=== PATIENT | male | born 1955 | race Caucasian/White ===

== ENCOUNTER 2016-11-12 11:05 | Emergency (ER) | payer OTHER ==
[2016-11-12 11:30] VITALS: TEMP 95
--- NOTE | 2016-11-12 11:48 | ED.PDOC ---
History of Present Illness - General Chief Complaint: Upper Extremity Injury Stated Complaint: shoulder pain Time Seen by Provider: 11/12/16 11:41 - History of Present Illness Initial Comments: This 61 y/o male fell on his right shoulder about a month ago. It has hurt since, and now even his Percocet does not help. The pain is severe. He has reduced ROM because of pain. It hurts in the shoulder joint, but also around the scapula and thoracic spine. Timing/Duration: getting worse, other - Over 1 month Severity: severe Improving Factors: nothing Worsening Factors: nothing Associated Symptoms: denies symptoms Allergies/Adverse Reactions: Allergies NO KNOWN ALLERGY Allergy (Verified 09/30/16 08:54) Home Medications: Ambulatory Orders Oxycodone W/ Acetaminophen [Oxycodone/Acetaminophen 10-325 mg] 1 tab PO TID PRN 02/19/16 Cyclobenzaprine HCl [Flexeril] 10 mg PO TID 06/24/16 Gabapentin 400 mg PO TID 11/12/16 Naproxen [Naprosyn] 500 mg PO BID #30 tab 11/12/16 Review of Systems - Review of Systems Constitutional: States: no symptoms reported EENTM: States: no symptoms reported Respiratory: States: no symptoms reported Cardiology: States: no symptoms reported Gastrointestinal/Abdominal: States: no symptoms reported Genitourinary: States: no symptoms reported Musculoskeletal: States: back pain, joint pain, joint swelling Skin: States: no symptoms reported Neurological: States: no symptoms reported Endocrine: States: no symptoms reported Hematologic/Lymphatic: States: no symptoms reported All other Systems: Reviewed and Negative Past Medical History (General) - Patient Medical History Hx Seizures: No Hx Stroke: No Hx Dementia: No Hx Asthma: No Hx of COPD: No Hx Cardiac Disorders: Yes - s/p stents placed, an artery still blocked Hx Congestive Heart Failure: No Hx Pacemaker: No Hx Hypertension: No Hx Thyroid Disease: No Hx Diabetes: No Hx Gastroesophageal Reflux: No Hx Renal Disease: No Hx Cancer: No Hx of HIV: No Hx Hepatitis C: No Hx MRSA: No - Vaccination History Hx Tetanus, Diphtheria Vaccination: Yes - current Hx Influenza Vaccination: No Hx Pneumococcal Vaccination: Yes - Social History Hx Tobacco Use: Yes Hx Chewing Tobacco Use: No Hx Alcohol Use: No Hx Substance Use: No Hx Substance Use Treatment: No Hx Depression: No Hx Physical Abuse: No Hx Emotional Abuse: No Hx Suspected Abuse: No - Female History Patient : No Family Medical History - Family History Mother Living Status: Still Living Hx Family;Other: CIDP Father Name: Kalpesh Age (years): 95 Living Status: Still Living Hx Family Asthma: No Hx Family Congestive Heart Failure: No Hx Family Hypertension: Yes Hx Family Stroke: No Hx Cardiac Disease: Yes - Six Stents Hx Family Diabetes: No Hx Family Cancer: No Hx Family;Other: Diverticulitis, HX of [place], colectomy. Physical Exam - Physical Exam General Appearance: Alert, Obvious distress - Mild Ears, Nose, Throat: hearing grossly normal, normal ENT inspection Neck: non-tender, full range of motion Respiratory: lungs clear, normal breath sounds, no respiratory distress, no accessory muscle use Cardiovascular/Chest: regular rate, rhythm, no edema, no gallop, no murmur Gastrointestinal/Abdominal: normal bowel sounds, non tender, soft Back Exam: vertebral tenderness - Lower thoracic, other - Pain inferior to scapula on right. + posterior rib pain. Extremity: other - Right shoulder joint pain, decreased ROM. Neurologic: alert, normal mood/affect, oriented x 3 Skin Exam: normal color, warm/dry Progress - Results/Orders Results/Orders: 11/12/16 11/12/16 11:26 12:48 Temperature 95 F L Pulse Rate [ 90 79 Left Brachial] Respiratory 20 16 Rate Blood Pressure 108/75 107/70 [Left Arm] O2 Sat by Pulse 96 94 L Oximetry R shoulder, scapula, ribs and T-spine: acute R posterior 6-10 rib fractures, Compression fracture lower thoracic vertebrae-age unknown. - EKG/XRAY/CT Xray Comments: See Results/Orders Departure - Departure Clinical Impression: Ribs, multiple fractures Qualifiers: Encounter type: initial encounter Fracture type: closed Laterality: right Qualifier Code: (S22.41XA) Multiple fractures of ribs, right side, initial encounter for closed fracture Vertebral compression fracture Qualifiers: Encounter type: initial encounter Qualifier Code: (M48.50XA) Collapsed vertebra , not elsewhere classified, site unspecified, initial encounter for fracture Fall from standing Qualifiers: Encounter type: initial encounter Qualifier Code: (W19.XXXA) Unspecified fall, initial encounter Time of Disposition: 13:55 Disposition: Discharge to Home or Self Care Condition: Good Departure Forms: ED Discharge - Pt. Copy, Patient Portal Self Enrollment Instructions: Rib Fracture, DI for Rib Fracture, Vertebral Compression Fracture , DI for Vertebral Fracture Diet: resume usual diet Referrals: Loren Meek NP [Primary Care Provider] - 1-5 Days Prescriptions: Naproxen [Naprosyn] 500 mg PO BID #30 tab Home Medications: Ambulatory Orders Oxycodone W/ Acetaminophen [Oxycodone/Acetaminophen 10-325 mg] 1 tab PO TID PRN 02/19/16 Cyclobenzaprine HCl [Flexeril] 10 mg PO TID 06/24/16 Gabapentin 400 mg PO TID 11/12/16 Naproxen [Naprosyn] 500 mg PO BID #30 tab 11/12/16 Additional Instructions: Follow up with PCP in 1-5 days. Need MRI of thoracic spine to determine age of compression fracture. Follow up in ED for any shortness of breath.
--- NOTE | 2016-11-12 13:22 | RAD ---
EXAM DESCRIPTION: Three views of right ribs. CLINICAL HISTORY: Fall, chest pain COMPARISON: None. TECHNIQUE: Three views of the ribs were acquired and submitted for evaluation. FINDINGS: Multiple right rib fractures. Negative for pneumothorax. IMPRESSION: Acute fractures of the 6th, 7th, 8th, 9th and possibly 10th right ribs. No definitive pneumothorax. Electronically signed by: Rodney Krishnan MD 11/12/2016 13:19
--- NOTE | 2016-11-12 13:22 | RAD ---
EXAM DESCRIPTION: XR SCAPULA CLINICAL HISTORY: 61 y/o ,M, Fall--shoulder, scapular, t-spine pain COMPARISON: None. IMPRESSION: Right rib fractures. The right glenohumeral joint and acromioclavicular joints are unremarkable. The imaged clavicle is unremarkable. Electronically signed by: Rodney Krishnan MD 11/12/2016 13:20
--- NOTE | 2016-11-12 13:23 | RAD ---
EXAM DESCRIPTION: XR SHOULDER 2 OR MORE VIEWS CLINICAL HISTORY: 61 y/o ,M, Fall--shoulder, scapular, t-spine pain COMPARISON: None. IMPRESSION: Two views of the right shoulder demonstrates no evidence of proximal humeral fracture or scapular fracture. The clavicle is also likely unremarkable. Multiple right posterior rib fractures. Electronically signed by: Rodney Krishnan MD 11/12/2016 13:21
--- NOTE | 2016-11-12 13:24 | RAD ---
EXAM DESCRIPTION: XR THORACIC SPINE 2 VIEWS CLINICAL HISTORY: 61 y/o ,M, Fall--shoulder, scapular, t-spine pain COMPARISON: None. IMPRESSION: Age indeterminate wedge fracture of a lower thoracic vertebral body period no additional vertebral body fractures are noted. If a time frame for this fracture is needed MRI suggested. Electronically signed by: Rodney Krishnan MD 11/12/2016 13:22
[2016-11-12] MEDS ORDERED: HYDROmorphone HCL INJ 2 MG/ML VIAL IM ONE (13:59)
[2016-11-12 14:23] VITALS: BP 118/74; O2SAT 97
== END 2016-11-12 14:35 | disposition home or self-care (01) ==
LOC: ER 11:05
DX: S22.41XA Multiple fractures of ribs, right side, initial encounter for closed fracture (principal); M48.50XA Collapsed vertebra, not elsewhere classified, site unspecified, initial encounter for fracture; Z98.61 Coronary angioplasty status; Z87.891 Personal history of nicotine dependence; Z79.899 Other long term (current) drug therapy; W19.XXXA Unspecified fall, initial encounter
CPT/HCPCS: 71101; 72070; 73010; 73030; J1170

== ENCOUNTER → 2016-11-16 | Outpatient (CLI) | payer OTHER ==
--- NOTE | 2016-11-16 10:25 | RAD ---
EXAM DESCRIPTION: XR SHOULDER 2 OR MORE VIEWS CLINICAL HISTORY: PAIN IN RIGHT SHOULDER COMPARISON: November 12, 2016 FINDINGS: Two views of the right shoulder were obtained. Again seen are multiple displaced right-sided rib fractures without apparent segmental rib fracture or pneumothorax. The right humeral head and neck are intact. Mild degenerative changes are noted in the right AC joint. The glenohumeral joint is anatomically aligned. Postoperative changes are noted in the right side of the neck and cervical spine. A vascular graft or stent is noted in the upper mediastinum left of midline. IMPRESSION: Multiple displaced right-sided rib fractures, unchanged from November 12, 2016. No segmental rib fracture, pneumothorax or other complication. No additional abnormality to explain right shoulder pain. Electronically signed by: Osvaldo Wall DO 11/16/2016 10:23
== END | disposition home or self-care (01) ==
LOC: RAD 08:43
PROVIDERS: ATTEND Nurse Practitioner Family
DX: M25.519 Pain in unspecified shoulder (principal)

== ENCOUNTER → 2016-11-27 | Outpatient (CLI) | payer OTHER ==
--- NOTE | 2016-11-29 10:06 | CT ---
CT right shoulder CLINICAL HISTORY: Right shoulder pain. Old rib fractures on the right side.. TECHNIQUE: Thin section axial CT with coronal and sagittal reformatted images. FINDINGS: There are multiple right-sided rib fractures. Remote healed fracture deformity anterior right third and fourth ribs. Partially healed anterior fifth rib fracture. There are two fractures of the sixth rib with displacement of the posterior fracture by about the width of the rib. Similarly displaced posterior right seventh rib fracture. Nondisplaced eighth rib fracture. Nondisplaced fractures of the lateral aspect of the fifth and sixth ribs. No pneumothorax. Pleural thickening along the posterior rib fractures, sixth seventh and eighth The posterior right sixth and seventh rib is in close proximity to the anterior border of the scapula and may account for impingement There is no fracture of the clavicle, scapula or proximal humerus There is no advanced glenohumeral osteoarthritis or focal osteochondral lesion This is not a detailed evaluation of the rotator cuff tendons but there is no diagnostic evidence of full-thickness rotator cuff tear. No subacromial or subdeltoid fluid. Mild muscle volume loss of the supraspinatus, infraspinatus and subscapularis. Grade 1 fatty infiltration of the subscapularis muscle Normal deltoid muscle Non-MSK: No mass or adenopathy in the visualized chest. IMPRESSION: Multiple right-sided rib fractures. Posterior right sixth and seventh ribs in close proximity to the undersurface of the scapula may account for some impingement symptoms No fracture or osteochondral lesion glenohumeral joint. No fracture or separation clavicle/AC joint Electronically signed by: Tristin Syed MD 11/29/2016 10:05 AM [employer]ATCH [employer]SEM[employer]PECTOR
== END | disposition home or self-care (01) ==
LOC: CT 08:58
PROVIDERS: ATTEND Orthopaedic Surgery
DX: R22.31 Localized swelling, mass and lump, right upper limb (principal)

== ENCOUNTER → 2016-12-22 | Outpatient (CLI) | payer OTHER | END | disposition home or self-care (01) | LOC: YCFC.O 13:44 | PROVIDERS: ATTEND Nurse Practitioner Family | DX: Z79.891 Long term (current) use of opiate analgesic (principal) ==

== ENCOUNTER 2016-12-26 13:44 | Emergency (ER) | payer OTHER ==
[2016-12-26 13:56] VITALS: BP 143/79; TEMP 97.1; O2SAT 94
--- NOTE | 2016-12-26 14:04 | ED.PDOC ---
History of Present Illness - General Chief Complaint: Head Injury Stated Complaint: fell and hit back of head Time Seen by Provider: 12/26/16 13:59 Source: patient Exam Limitations: no limitations - History of Present Illness Initial Comments: Maxi Miles 61 y/o male with history of chronic neck and back pain stated he lost his balance while opening the car door fell back wards landing on his head,had headache but no loc remembers incident but felt dazed afterwards.No neck pain able to get up on his own.Brought by his dad to er. Timing/Duration: 1/2 hour Severity: moderate Improving Factors: nothing Allergies/Adverse Reactions: Allergies NO KNOWN ALLERGY Allergy (Verified 09/30/16 08:54) Home Medications: Ambulatory Orders Oxycodone W/ Acetaminophen [Oxycodone/Acetaminophen 10-325 mg] 1 tab PO TID PRN 02/19/16 Gabapentin 400 mg PO TID 11/12/16 Esomeprazole Magnesium [Nexium] 40 mg PO DAILY 12/26/16 Ibuprofen [Motrin] 400 mg PO Q6HR #30 tab 12/26/16 Review of Systems - Review of Systems Constitutional: States: no symptoms reported EENTM: States: no symptoms reported Cardiology: States: no symptoms reported Gastrointestinal/Abdominal: States: no symptoms reported Genitourinary: States: no symptoms reported Musculoskeletal: States: no symptoms reported Skin: States: no symptoms reported Neurological: States: headache Endocrine: States: no symptoms reported Hematologic/Lymphatic: States: no symptoms reported Past Medical History (General) - Patient Medical History Hx Seizures: No Hx Stroke: No Hx Dementia: No Hx Asthma: No Hx of COPD: No Hx Cardiac Disorders: Yes - s/p stents placed, an artery still blocked Hx Congestive Heart Failure: No Hx Pacemaker: No Hx Hypertension: No Hx Thyroid Disease: No Hx Diabetes: No Hx Gastroesophageal Reflux: No Hx Renal Disease: No Hx Cancer: No Hx of HIV: No Hx Hepatitis C: No Hx MRSA: No Hx Other PMH: Yes - chronic neck/back pain Surgical History: other - back/neck surgery - Vaccination History Hx Tetanus, Diphtheria Vaccination: Yes Hx Influenza Vaccination: No Hx Pneumococcal Vaccination: Yes - Social History Hx Tobacco Use: Yes Hx Chewing Tobacco Use: No Hx Alcohol Use: No Hx Substance Use: No Hx Substance Use Treatment: No Hx Depression: No Hx Physical Abuse: No Hx Emotional Abuse: No Hx Suspected Abuse: No - Activities of Daily Living Grooming Ability: Independent Eating (Feeding) Ability: Independent Toileting Ability: Independent - Female History Patient : No Family Medical History - Family History Mother Family History: No Known Living Status: Still Living Hx Family;Other: CIDP Father Name: Kalpesh Age (years): 95 Living Status: Still Living Hx Family Asthma: No Hx Family Congestive Heart Failure: No Hx Family Hypertension: Yes Hx Family Stroke: No Hx Cardiac Disease: Yes - Six Stents Hx Family Diabetes: No Hx Family Cancer: No Hx Family;Other: Diverticulitis, HX of [place], colectomy. Physical Exam - Physical Exam General Appearance: Alert, No apparent distress, Other - speech fluent Eye Exam: bilateral normal - with glasses Ears, Nose, Throat: hearing grossly normal, normal ENT inspection, normal pharynx Neck: non-tender, full range of motion, supple Respiratory: chest non-tender, lungs clear, normal breath sounds Cardiovascular/Chest: normal peripheral pulses, regular rate, rhythm, no edema, no gallop, no JVD, no murmur Gastrointestinal/Abdominal: normal bowel sounds, non tender, soft, no organomegaly, no pulsatile mass Back Exam: normal inspection, no CVA tenderness, no vertebral tenderness Extremity: normal range of motion, non-tender Neurologic: no motor/sensory deficits, alert, normal mood/affect, oriented x 3 Skin Exam: normal color, warm/dry, other - scalp swelling occiput Progress - EKG/XRAY/CT CT: head-no acute abnormality Departure - Departure Clinical Impression: Fall against object Qualifiers: Encounter type: initial encounter Qualifier Code: (W18.09XA) Striking against other object with subsequent fall, initial encounter Scalp contusion Qualifiers: Encounter type: initial encounter Qualifier Code: (S00.03XA) Contusion of scalp , initial encounter Time of Disposition: 15:05 Disposition: Discharge to Home or Self Care Condition: Good Departure Forms: ED Discharge - Pt. Copy, Patient Portal Self Enrollment Instructions: DI for Contusion Prescriptions: Ibuprofen [Motrin] 400 mg PO Q6HR #30 tab Home Medications: Ambulatory Orders Oxycodone W/ Acetaminophen [Oxycodone/Acetaminophen 10-325 mg] 1 tab PO TID PRN 02/19/16 Gabapentin 400 mg PO TID 11/12/16 Esomeprazole Magnesium [Nexium] 40 mg PO DAILY 12/26/16 Ibuprofen [Motrin] 400 mg PO Q6HR #30 tab 12/26/16 Additional Instructions: RETURN TO EMERGENCY ROOM NEEDED
--- NOTE | 2016-12-26 15:01 | CT ---
EXAM DESCRIPTION: Head CLINICAL HISTORY: head contusion/fall COMPARISON: None Available. TECHNIQUE: Contiguous axial images of the brain were obtained without the administration of intravenous contrast. FINDINGS: There is no acute intracranial hemorrhage or mass effect. Ventricular system is within normal limits. There is adequate posey-white matter differentiation. There is no skull fracture. There is a hematoma within the posterior scalp. The visualized paranasal sinuses and mastoid air cells are within normal limits. IMPRESSION: No acute intracranial abnormalities. Electronically signed by: Dhiraj Upton MD 12/26/2016 3:00 PM CDT
== END 2016-12-26 15:19 | disposition home or self-care (01) ==
LOC: ER 13:44
DX: S00.03XA Contusion of scalp, initial encounter (principal); G89.29 Other chronic pain; M54.2 Cervicalgia; M54.9 Dorsalgia, unspecified; Z87.891 Personal history of nicotine dependence; Z98.61 Coronary angioplasty status; Z79.899 Other long term (current) drug therapy; W19.XXXA Unspecified fall, initial encounter

== ENCOUNTER 2016-12-29 09:54 | Emergency (ER) | payer OTHER ==
[2016-12-29] MEDS ORDERED: KETOROLAC TROMETHAMINE INJ 30 MG/ML VIAL IM ONE (10:44)
[2016-12-29 10:58] VITALS: TEMP 96.9
--- NOTE | 2016-12-29 11:20 | RAD ---
EXAM DESCRIPTION: Ribs,Left 3 Views CLINICAL HISTORY: 61 years Male, fall 3 days ago with pain COMPARISON: None. TECHNIQUE: Three views of the left ribs FINDINGS: There are subacute/healing fractures of the left sixth and eighth ribs posterolaterally. No bone lesion is observed. IMPRESSION: Subacute/healing left side posterolateral rib fractures of the sixth and eighth ribs Electronically signed by: Erik Caldera MD 12/29/2016 11:19 AM CDT
--- NOTE | 2016-12-29 11:36 | ED.PDOC ---
History of Present Illness - General Chief Complaint: General Stated Complaint: rib pain Time Seen by Provider: 12/29/16 10:09 Source: patient, family Exam Limitations: clinical condition - History of Present Illness Initial Comments: the patient is a 61-year-old male presenting to the emergency room secondary to left-sided anterior and posterior chest pain since a fall that occurred on Wednesday. He was seen at the time of the fall here and was evaluated for head injury but he did not complain of any chest pain at that time and was sent home. He has since had chest pain as stated above and he does have some bruising to his back. It hurts when he twists and turns and takes a deep breath. No reinjury since that time. Severity: moderate Improving Factors: immobilization Worsening Factors: movement Associated Symptoms: chest pain Allergies/Adverse Reactions: Allergies NO KNOWN ALLERGY Allergy (Verified 09/30/16 08:54) Home Medications: Ambulatory Orders Oxycodone W/ Acetaminophen [Oxycodone/Acetaminophen 10-325 mg] 1 tab PO TID PRN 02/19/16 Gabapentin 400 mg PO TID 11/12/16 Esomeprazole Magnesium [Nexium] 40 mg PO DAILY 12/26/16 Ibuprofen [Motrin] 400 mg PO Q6HR #30 tab 12/26/16 Cephalexin Monohydrate [Keflex] 500 mg PO Q12H #10 cap 12/29/16 Review of Systems - Review of Systems Review of Systems: 12/29/16 11:35 compared to baseline: Constitutional: States: no symptoms reported EENTM: States: no symptoms reported Respiratory: States: no symptoms reported Cardiology: States: chest pain Gastrointestinal/Abdominal: States: no symptoms reported Genitourinary: States: no symptoms reported Musculoskeletal: States: see HPI Skin: States: no symptoms reported Neurological: States: no symptoms reported - chronic changes only Endocrine: States: no symptoms reported Hematologic/Lymphatic: States: no symptoms reported All other Systems: No Change from Baseline Past Medical History (General) - Patient Medical History Hx Seizures: No Hx Stroke: No Hx Dementia: No Hx Asthma: No Hx of COPD: No Hx Cardiac Disorders: Yes - s/p stents placed, an artery still blocked Hx Congestive Heart Failure: No Hx Pacemaker: No Hx Hypertension: No Hx Thyroid Disease: No Hx Diabetes: No Hx Gastroesophageal Reflux: No Hx Renal Disease: No Hx Cancer: No Hx of HIV: No Hx Hepatitis C: No Hx MRSA: No - Vaccination History Hx Tetanus, Diphtheria Vaccination: Yes Hx Influenza Vaccination: No Hx Pneumococcal Vaccination: Yes - Social History Hx Tobacco Use: Yes Hx Chewing Tobacco Use: No Hx Alcohol Use: No Hx Substance Use: No Hx Substance Use Treatment: No Hx Depression: No Hx Physical Abuse: No Hx Emotional Abuse: No Hx Suspected Abuse: No - Female History Patient : No Family Medical History - Family History Mother Family History: No Known Living Status: Still Living Hx Family;Other: CIDP Father Name: Kalpesh Age (years): 95 Living Status: Still Living Hx Family Asthma: No Hx Family Congestive Heart Failure: No Hx Family Hypertension: Yes Hx Family Stroke: No Hx Cardiac Disease: Yes - Six Stents Hx Family Diabetes: No Hx Family Cancer: No Hx Family;Other: Diverticulitis, HX of [place], colectomy. Physical Exam - Physical Exam General Appearance: Alert, Anxious, No apparent distress Eye Exam: bilateral normal Ears, Nose, Throat: hearing grossly normal, normal pharynx, other - e does have some facial asymmetry from his previous stroke as well as some slurring of speech from his previous stroke Neck: non-tender, full range of motion Respiratory: lungs clear, normal breath sounds, no respiratory distress, no accessory muscle use, other - the patient does have discomfort palpation over the lower half of his left side of his chest. He also has bruising noted as stated above. Cardiovascular/Chest: normal peripheral pulses, regular rate, rhythm, no edema Peripheral Pulses: radial,right: 2+, radial,left: 2+, dorsalis pedis,right: 2+, dorsalis pedis,left: 2+ Gastrointestinal/Abdominal: non tender Rectal Exam: deferred Back Exam: no CVA tenderness, no vertebral tenderness, other - bruising as stated above on the left Extremity: normal range of motion, non-tender, normal inspection, no pedal edema , no calf tenderness, normal capillary refill Neurologic: alert, normal mood/affect, oriented x 3 - he does have poor memory which is a long-term problem related to his Skin Exam: normal color - with the exception of the bruising Comments: Vital Signs - 24 hr 12/29/16 12/29/16 12/29/16 10:06 10:16 10:58 Temperature 96.4 F L 96.9 F L Pulse Rate [ 83 72 Left Brachial] Respiratory 20 20 16 Rate Blood Pressure 125/71 113/57 [Left Arm] O2 Sat by Pulse 97 99 Oximetry Progress - Progress Progress: 12/29/16 11:37 the patient is a 61-year-old male who fell approximately 3 days ago and has been having some left-sided chest pain since that time. Rib series here shows nondisplaced fractures of the sixth and eighth ribs on the left. No evidence of pneumothorax. The patient needs to take big deep breaths and twist and turn to help reduce fluid accumulation in the lungs and reduce his risk for pneumonia formation. He can continue his chronic pain medications for pain control. ER warnings were given for any acute worsening. he should follow-up with his primary care doctor before the weekend for reevaluation. I will go ahead and place the patient on prophylactic Keflex for 5 days only at twice a day dosing. 12/29/16 11:39 Departure - Departure Clinical Impression: Ribs, multiple fractures Qualifiers: Encounter type: initial encounter Fracture type: closed Laterality: left Qualifier Code: (S22.42XA) Multiple fractures of ribs, left side, initial encounter for closed fracture Disposition: Discharge to Home or Self Care Condition: Fair Departure Forms: ED Discharge - Pt. Copy, Patient Portal Self Enrollment Instructions: DI for Rib Fracture Diet: regular diet Activity: increase activity as tolerated Referrals: Loren Meek NP [Primary Care Provider] - 1-5 Days Prescriptions: Cephalexin Monohydrate [Keflex] 500 mg PO Q12H #10 cap Home Medications: Ambulatory Orders Oxycodone W/ Acetaminophen [Oxycodone/Acetaminophen 10-325 mg] 1 tab PO TID PRN 02/19/16 Gabapentin 400 mg PO TID 11/12/16 Esomeprazole Magnesium [Nexium] 40 mg PO DAILY 12/26/16 Ibuprofen [Motrin] 400 mg PO Q6HR #30 tab 12/26/16 Cephalexin Monohydrate [Keflex] 500 mg PO Q12H #10 cap 12/29/16 Additional Instructions: the patient is a 61-year-old male who fell approximately 3 days ago and has been having some left-sided chest pain since that time. Rib series here shows nondisplaced fractures of the sixth and eighth ribs on the left. No evidence of pneumothorax. The patient needs to take big deep breaths and twist and turn to help reduce fluid accumulation in the lungs and reduce his risk for pneumonia formation. He can continue his chronic pain medications for pain control. ER warnings were given for any acute worsening. he should follow-up with his primary care doctor before the weekend for reevaluation. He will be placed on prophylactic Keflex for 5 days
[2016-12-29 11:54] VITALS: BP 99/59; O2SAT 97
== END 2016-12-29 11:54 | disposition home or self-care (01) ==
LOC: ER 09:54
DX: S22.42XA Multiple fractures of ribs, left side, initial encounter for closed fracture (principal); I25.10 Atherosclerotic heart disease of native coronary artery without angina pectoris; Z98.61 Coronary angioplasty status; Z87.891 Personal history of nicotine dependence; W19.XXXA Unspecified fall, initial encounter
CPT/HCPCS: 71101; J1885

== ENCOUNTER → 2017-01-19 | Outpatient (CLI) | payer OTHER | END | disposition home or self-care (01) | LOC: YCFC.O 15:22 | PROVIDERS: ATTEND Nurse Practitioner Family | DX: Z79.891 Long term (current) use of opiate analgesic (principal) ==

== ENCOUNTER → 2017-02-16 | Outpatient (CLI) | payer OTHER | END | disposition home or self-care (01) | LOC: YCFC.O 15:30 | PROVIDERS: ATTEND Anesthesiology Pain Medicine | DX: Z79.891 Long term (current) use of opiate analgesic (principal) ==

== ENCOUNTER → 2017-03-16 | Outpatient (CLI) | payer OTHER | LOC: YCFC.O 14:22 | PROVIDERS: ATTEND Anesthesiology Pain Medicine | DX: Z79.891 Long term (current) use of opiate analgesic (principal) ==

== ENCOUNTER 2017-03-19 06:53 | Emergency (ER) | payer OTHER ==
--- NOTE | 2017-03-19 07:17 | ED.PDOC ---
History of Present Illness - General Chief Complaint: Laceration Stated Complaint: Lacerated R forehead at eyebrow Time Seen by Provider: 03/19/17 07:14 Source: patient, RN notes reviewed, Vital Signs reviewed Exam Limitations: no limitations - History of Present Illness Initial Comments: Maxi Miles 61 y/o male stated while visiting his friend at [employer] slipped and on the floor with laceration to his right eyebrow.No loss of conciousness,no nausea/vomiting ,no blurry vision no neck pains Timing/Duration: just prior to arrival Severity: mild Location: face Improving Factors: nothing Worsening Factors: nothing Associated Symptoms: denies symptoms Allergies/Adverse Reactions: Allergies NO KNOWN ALLERGY Allergy (Verified 09/30/16 08:54) Home Medications: Ambulatory Orders Oxycodone W/ Acetaminophen [Oxycodone/Acetaminophen 10-325 mg] 1 tab PO TID PRN 02/19/16 Gabapentin 400 mg PO TID 11/12/16 Esomeprazole Magnesium [Nexium] 40 mg PO DAILY 12/26/16 Ibuprofen [Motrin] 400 mg PO Q6HR #30 tab 12/26/16 Cephalexin Monohydrate [Keflex] 500 mg PO Q12H #10 cap 12/29/16 Review of Systems - Review of Systems Constitutional: States: no symptoms reported EENTM: States: no symptoms reported Respiratory: States: no symptoms reported Cardiology: States: no symptoms reported Gastrointestinal/Abdominal: States: no symptoms reported Genitourinary: States: no symptoms reported Musculoskeletal: States: no symptoms reported Skin: States: see HPI Neurological: States: no symptoms reported Endocrine: States: no symptoms reported Hematologic/Lymphatic: States: no symptoms reported Past Medical History (General) - Patient Medical History Hx Seizures: No Hx Stroke: No Hx Dementia: No Hx Asthma: No Hx of COPD: No Hx Cardiac Disorders: Yes - s/p stents placed, an artery still blocked Hx Congestive Heart Failure: No Hx Pacemaker: No Hx Hypertension: No Hx Thyroid Disease: No Hx Diabetes: No Hx Gastroesophageal Reflux: No Hx Renal Disease: No Hx Cancer: No Hx of HIV: No Hx Hepatitis C: No Hx MRSA: No Surgical History: other - spine-lumbar/cervical - Vaccination History Hx Tetanus, Diphtheria Vaccination: Yes Hx Influenza Vaccination: No Hx Pneumococcal Vaccination: Yes - Social History Hx Tobacco Use: Yes Hx Chewing Tobacco Use: No Hx Alcohol Use: No Hx Substance Use: No Hx Substance Use Treatment: No Hx Depression: No Hx Physical Abuse: No Hx Emotional Abuse: No Hx Suspected Abuse: No - Female History Patient : No Family Medical History - Family History Mother Family History: No Known Living Status: Still Living Hx Family;Other: CIDP Father Name: Kalpesh Age (years): 95 Living Status: Still Living Hx Family Asthma: No Hx Family Congestive Heart Failure: No Hx Family Hypertension: Yes Hx Family Stroke: No Hx Cardiac Disease: Yes - Six Stents Hx Family Diabetes: No Hx Family Cancer: No Hx Family;Other: Diverticulitis, HX of [place], colectomy. Physical Exam - Physical Exam General Appearance: Alert, No apparent distress, Other - speech fluent Eyes, Ears, Nose, Throat Exam: PERRL/EOMI, normal ENT inspection, TMs normal, pharynx normal Neck: non-tender, full range of motion, supple, normal inspection Cardiovascular/Chest: normal peripheral pulses, regular rate, rhythm, no murmur Respiratory: chest non-tender, lungs clear, normal breath sounds, no respiratory distress Gastrointestinal/Abdominal: normal bowel sounds, non tender, soft Back Exam: normal inspection Extremity: normal range of motion, non-tender, normal inspection, no calf tenderness Neurologic: no motor/sensory deficits, alert, oriented x 3 Skin Exam: warm/dry Skin Problem Location: face Skin Character: other - laceration 1.2 cm right eyebrow Procedures - Laceration/Wound Repair Face Wound Length (cm): 1.2 Wound's Depth, Shape: superficial Wound Explored: clean Irrigated w/ Saline (cc's): 10 Betadine Prep?: No - hibiclens Wound Repaired With: dermabond Sterile Dressing Applied?: Yes - reinforced with steri strip Departure - Departure Clinical Impression: Fall Qualifiers: Encounter type: initial encounter Qualified Code(s): W19.XXXA - Unspecified fall, initial encounter Laceration of eyebrow, right Qualifiers: Encounter type: initial encounter Qualified Code(s): S01.111A - Laceration without foreign body of right eyelid and periocular area, initial encounter Time of Disposition: 07:27 Disposition: Discharge to Home or Self Care Departure Forms: ED Discharge - Pt. Copy, Patient Portal Self Enrollment Instructions: DI for Laceration Repair With Dermabond Referrals: Loren Meek NP [Primary Care Provider] - 1-2 Weeks Home Medications: Ambulatory Orders Oxycodone W/ Acetaminophen [Oxycodone/Acetaminophen 10-325 mg] 1 tab PO TID PRN 02/19/16 Gabapentin 400 mg PO TID 11/12/16 Esomeprazole Magnesium [Nexium] 40 mg PO DAILY 12/26/16 Ibuprofen [Motrin] 400 mg PO Q6HR #30 tab 12/26/16 Cephalexin Monohydrate [Keflex] 500 mg PO Q12H #10 cap 12/29/16 Additional Instructions: Return to emergency room as needed
[2017-03-19 07:57] VITALS: TEMP 97.6
[2017-03-19 08:02] VITALS: BP 120/66; O2SAT 94
== END 2017-03-19 08:02 | disposition home or self-care (01) ==
LOC: ER 06:53
DX: S01.111A Laceration without foreign body of right eyelid and periocular area, initial encounter (principal); Z79.899 Other long term (current) drug therapy; Z87.891 Personal history of nicotine dependence; Z98.61 Coronary angioplasty status; W01.0XXA Fall on same level from slipping, tripping and stumbling without subsequent striking against object, initial encounter; Y92.89 Other specified places as the place of occurrence of the external cause

== ENCOUNTER → 2017-04-27 | Outpatient (CLI) | payer OTHER | END | disposition home or self-care (01) | LOC: YCFC.O 15:42 | PROVIDERS: ATTEND Anesthesiology Pain Medicine | DX: Z79.891 Long term (current) use of opiate analgesic (principal) ==

== ENCOUNTER 2017-05-14 17:38 | Emergency (ER) | payer OTHER ==
--- NOTE | 2017-05-14 18:52 | RAD ---
EXAM DESCRIPTION: Cervical Spine,5 Views CLINICAL HISTORY: 61 years Male pain COMPARISON: CT cervical spine study from 09/30/2016. TECHNIQUE: Five views of the cervical spine. FINDINGS: The C7 and T1 levels are suboptimally visualized on the lateral view. Changes from anterior cervical spinal fusion at C4-5. The surgical hardware appears intact. Vertebral body alignment is unremarkable. No acute fractures are identified. There are mild degenerative changes in the spine. No significant bony foraminal encroachment is identified. The patient is edentulous. There are postsurgical changes in the right neck. There are atherosclerotic calcifications at the left carotid bifurcation. Vascular stent overlies the left upper chest. IMPRESSION: No acute osseous abnormality is identified. CT or MRI could be obtained to better evaluate if indicated. Atherosclerotic calcifications at the left carotid bifurcation. There appear to be changes from previous right carotid endarterectomy. Electronically signed by: Ramón Bryan MD 05/14/2017 6:51 PM CDT
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
[2017-05-14] MEDS ORDERED: KETOROLAC TROMETHAMINE INJ 60 MG/2 ML VIAL IM ONE (19:32)
[2017-05-14] MEDS ORDERED: ORPHENADRINE CITRATE 30 MG/ML AMP IM ONE (19:33)
[2017-05-14] MEDS ORDERED: HYDROcodone 7.5MG/APAP 325MG 1 EA TAB PO ONE (19:34)
[2017-05-14 19:52] VITALS: BP 115/87; TEMP 98.5; O2SAT 95
== END 2017-05-14 19:57 | disposition home or self-care (01) ==
LOC: ER 17:38
DX: S16.1XXA Strain of muscle, fascia and tendon at neck level, initial encounter (principal); G89.29 Other chronic pain; M54.9 Dorsalgia, unspecified; V43.63XA Car passenger injured in collision with pick-up truck in traffic accident, initial encounter; Y92.488 Other paved roadways as the place of occurrence of the external cause
CPT/HCPCS: 72050; J1885; J2360

== ENCOUNTER → 2017-05-25 | Outpatient (CLI) | payer OTHER | END | disposition home or self-care (01) | LOC: YCFC.O 14:19 | PROVIDERS: ATTEND Anesthesiology Pain Medicine | DX: Z79.891 Long term (current) use of opiate analgesic (principal) ==

== ENCOUNTER → 2017-06-22 | Outpatient (CLI) | payer OTHER | END | disposition home or self-care (01) | LOC: YCFC.O 14:40 | PROVIDERS: ATTEND Anesthesiology Pain Medicine | DX: Z79.891 Long term (current) use of opiate analgesic (principal) ==

== ENCOUNTER → 2017-06-29 | Outpatient (CLI) | payer OTHER ==
--- NOTE | 2017-06-30 09:32 | CT ---
EXAM DESCRIPTION: Thoracic Spine CLINICAL HISTORY: 61 years, Male, POSTLAMINECTOMY SYNDROME, NOT ELSEWHERE CLASSIFIED COMPARISON: Thoracic spine series TECHNIQUE: CT of the thoracic spine was performed without IV contrast. This exam was performed according to our departmental dose-optimization program, which includes automated exposure control, adjustment of the mA and/or kV according to patient size and/or use of iterative reconstruction technique. FINDINGS: There is an old T12 compression fracture, stable from November,. No acute vertebral body fracture or subluxation. The facet joints are anatomically aligned and the posterior elements are intact. No laminectomy defect is identified. Postoperative changes in the cervical spine are only partially included on this exam. There are several old right-sided rib fractures, some non or partially united. Old healed left-sided rib fractures are also noted. There are tiny anterior ossified subcutaneous levels in the thoracic spine without significant disc space narrowing. A stent is present in the proximal left subclavian artery. Aberrant course of the right subclavian artery is only partially visualized. This results in mass effect on the posterior esophageal wall. Emphysematous changes are noted without airspace consolidation or pleural effusion. There is a tiny calcified granuloma in the left lower lobe. Visualized portions of the upper abdomen are unremarkable for noncontrast technique. IMPRESSION: Old T12 compression fracture, stable from November,. Mild degenerative changes elsewhere in the thoracic spine, but no additional abnormality to explain patient's symptoms. Electronically signed by: Osvaldo Wall MD 06/30/2017 9:30 AM CDT Workstation: [id number]
== END | disposition home or self-care (01) ==
LOC: CT 10:18
PROVIDERS: ATTEND Anesthesiology Pain Medicine
DX: M96.1 Postlaminectomy syndrome, not elsewhere classified (principal)

== ENCOUNTER → 2017-07-02 | Outpatient (CLI) | payer OTHER ==
--- NOTE | 2017-07-05 10:07 | CT ---
EXAM DESCRIPTION: Cervical Spine CLINICAL HISTORY: OTHER CERVICAL DISC DEGENERATION, UNSP CERVICAL RE COMPARISON: None Available. TECHNIQUE: Cervical CT is performed with thin-section axial imaging. MPRs are created and reviewed as well. This exam was performed according to our departmental dose-optimization program, which includes automated exposure control, adjustment of the mA and/or kV according to patient size and/or use of iterative reconstruction technique. FINDINGS: CT of the cervical spine demonstrates normal alignment with prior anterior cervical disc fusion and graft with anterior plating at the C4-5 level that appears mature with anatomic alignment. Degenerative changes anteriorly at the C1-2 articulation are noted bony spinal canal is adequate throughout its course. Soft tissue structures are unremarkable except for some swallowing artifact in the hypopharynx. No cervical ribs are noted. Vertebral body alignment and disc contour is essentially normal at each level with obliteration of the disc space at the C4-5 level multilevel mild annular prominence is present. Prominent disc osteophyte complexes or asymmetric disc herniation is not identified. Assess for stent involving the left subclavian artery is incidentally noted. IMPRESSION: Prior anterior vertebral body plating and anterior cervical disc fusion and graft material at the C4-5 with a satisfactory alignment and a mature fusion evident. Mild degenerative changes involving the C1-2 articulation and to a lesser degree the disc spaces and facet joints with otherwise essentially normal CT of the cervical spine. Electronically signed by: Tristin Marino MD 07/05/2017 10:06 AM CDT
== END ==
LOC: CT 10:42
PROVIDERS: ATTEND Anesthesiology Pain Medicine
DX: M50.30 Other cervical disc degeneration, unspecified cervical region (principal); Z98.1 Arthrodesis status

== ENCOUNTER → 2017-07-20 | Outpatient (CLI) | payer OTHER | END | disposition home or self-care (01) | LOC: YCFC.O 15:15 | PROVIDERS: ATTEND Anesthesiology Pain Medicine | DX: Z79.891 Long term (current) use of opiate analgesic (principal) ==

== ENCOUNTER → 2017-08-17 | Outpatient (CLI) | payer OTHER | END | disposition home or self-care (01) | LOC: YCFC.O 16:11 | PROVIDERS: ATTEND Anesthesiology Pain Medicine | DX: Z79.891 Long term (current) use of opiate analgesic (principal) ==

== ENCOUNTER 2017-08-20 04:43 | Emergency (ER) | payer OTHER ==
--- NOTE | 2017-08-20 04:50 | ED.PDOC ---
History of Present Illness - General Chief Complaint: General Stated Complaint: diarrhea Time Seen by Provider: 08/20/17 04:43 Source: patient Exam Limitations: no limitations - History of Present Illness Initial Comments: Maxi Miles 61 y/o male stated that he had watery diarrhea for the last 2 days no nausea/vomiting ,no fever no ill contact no recent antibiotic use,or travel outside [place]Also with abdominal cramps. Timing/Duration: other - 2 days Improving Factors: nothing Worsening Factors: eating Associated Symptoms: other - see hpi Allergies/Adverse Reactions: Allergies NO KNOWN ALLERGY Allergy (Verified 08/20/17 04:53) Home Medications: Ambulatory Orders Oxycodone W/ Acetaminophen [Oxycodone/Acetaminophen 10-325 mg] 1 tab PO TID PRN 02/19/16 Gabapentin 400 mg PO TID 11/12/16 Esomeprazole Magnesium [Nexium] 40 mg PO DAILY 12/26/16 Ibuprofen [Motrin] 400 mg PO Q6HR #30 tab 12/26/16 Cephalexin Monohydrate [Keflex] 500 mg PO Q12H #10 cap 12/29/16 Methocarbamol [Robaxin] 750 mg PO TID #20 tab 05/14/17 Promethazine Tab [Phenergan Tablet] 25 mg PO .Q4H PRN #30 tab 08/20/17 Review of Systems - Review of Systems Constitutional: States: no symptoms reported Respiratory: States: no symptoms reported Cardiology: States: no symptoms reported Gastrointestinal/Abdominal: States: see HPI Genitourinary: States: no symptoms reported Past Medical History (General) - Patient Medical History Hx Seizures: No Hx Stroke: No Hx Dementia: No Hx Asthma: No Hx of COPD: No Hx Cardiac Disorders: Yes - s/p stents placed, an artery still blocked Hx Congestive Heart Failure: No Hx Pacemaker: No Hx Hypertension: No Hx Thyroid Disease: No Hx Diabetes: No Hx Gastroesophageal Reflux: No Hx Renal Disease: No Hx Cancer: No Hx of HIV: No Hx Hepatitis C: No Hx MRSA: No Hx Other PMH: Yes - chronic low back pain on pain management Surgical History: other - cardiac stents - Vaccination History Hx Tetanus, Diphtheria Vaccination: Yes Hx Influenza Vaccination: No Hx Pneumococcal Vaccination: No - Social History Hx Tobacco Use: Yes Hx Chewing Tobacco Use: No Hx Alcohol Use: No Hx Substance Use: No Hx Substance Use Treatment: No Hx Depression: No Hx Physical Abuse: No Hx Emotional Abuse: No Hx Suspected Abuse: No - Female History Patient : No Family Medical History - Family History Mother Family History: No Known Living Status: Still Living Hx Family;Other: CIDP Father Name: Kalpesh Age (years): 95 Living Status: Still Living Hx Family Asthma: No Hx Family Congestive Heart Failure: No Hx Family Hypertension: Yes Hx Family Stroke: No Hx Cardiac Disease: Yes - Six Stents Hx Family Diabetes: No Hx Family Cancer: No Hx Family;Other: Diverticulitis, HX of [place], colectomy. Physical Exam - Physical Exam General Appearance: Alert, Anxious, Frail Eye Exam: bilateral normal, bilateral other - non icteric sclerae Ears, Nose, Throat: hearing grossly normal, normal ENT inspection, normal pharynx Neck: non-tender, supple Respiratory: lungs clear, no respiratory distress Cardiovascular/Chest: normal peripheral pulses, regular rate, rhythm, no murmur Peripheral Pulses: radial,right: 2+, radial,left: 2+ Gastrointestinal/Abdominal: normal bowel sounds, non tender, soft, no organomegaly Back Exam: no CVA tenderness, no vertebral tenderness Extremity: no pedal edema, no calf tenderness Neurologic: alert, normal mood/affect, oriented x 3 Skin Exam: normal color, warm/dry Lymphatic: no adenopathy Progress - Progress Progress: 08/20/17 06:24 Last Vital Signs Temp 95.8 F L 08/20/17 06:17 Pulse 73 08/20/17 06:17 Resp 18 08/20/17 06:17 BP 131/79 08/20/17 06:17 Pulse Ox 90 L 08/20/17 06:17 - Results/Orders Results/Orders: Laboratory Tests 08/20/17 08/20/17 04:50 04:50 WBC 11.8 H RBC 4.21 L Hgb 13.6 L Hct 40.6 L MCV 96.4 H MCH 32.3 H MCHC 33.4 RDW 13.5 Plt Count 195 MPV 9.7 Absolute Neuts (auto) 7.00 H Absolute Lymphs (auto) 3.00 Absolute Monos (auto) 1.40 H Absolute Eos (auto) 0.30 Absolute Basos (auto) 0.10 Neutrophils % 59.2 Lymphocytes % 25.4 Monocytes % 12.1 H Eosinophils % 2.5 Basophils % 0.8 Sodium 138 Potassium 4.3 Chloride 106 Carbon Dioxide 29 Anion Gap 7.3 L BUN 16 Creatinine 0.97 BUN/Creatinine Ratio 16.5 Random Glucose 83 Serum Osmolality 276.0 Calcium 8.8 Total Bilirubin 0.3 AST 22 ALT 13 Alkaline Phosphatase 115 Serum Total Protein 6.6 Albumin 3.4 Globulin 3.2 Albumin/Globulin Ratio 1.1 - EKG/XRAY/CT CT Ordered: Yes - abd/p-no acute process Departure - Departure Clinical Impression: Abdominal cramps Diarrhea Qualifiers: Diarrhea type: unspecified type Qualified Code(s): R19.7 - Diarrhea, unspecified Time of Disposition: 06:51 Disposition: Discharge to Home or Self Care Condition: Good Departure Forms: ED Discharge - Pt. 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 [Primary Care Provider] - 1-2 Weeks Prescriptions: Promethazine Tab [Phenergan Tablet] 25 mg PO .Q4H PRN #30 tab PRN Reason: Abdominal Cramping Home Medications: Ambulatory Orders Oxycodone W/ Acetaminophen [Oxycodone/Acetaminophen 10-325 mg] 1 tab PO TID PRN 02/19/16 Gabapentin 400 mg PO TID 11/12/16 Esomeprazole Magnesium [Nexium] 40 mg PO DAILY 12/26/16 Ibuprofen [Motrin] 400 mg PO Q6HR #30 tab 12/26/16 Cephalexin Monohydrate [Keflex] 500 mg PO Q12H #10 cap 12/29/16 Methocarbamol [Robaxin] 750 mg PO TID #20 tab 05/14/17 Promethazine Tab [Phenergan Tablet] 25 mg PO .Q4H PRN #30 tab 08/20/17 Additional Instructions: Follow up with primary md 08/23/2017 as needed call for your appointment
[2017-08-20] MEDS ORDERED: LACTATED RINGERS 1,000 ML IVS ONE (04:53)
[2017-08-20] MEDS ORDERED: PROMETHAZINE HCL INJ 25 MG/ML VIAL IM ONE (04:53)
[2017-08-20 06:43] VITALS: BP 121/77; TEMP 95.3; O2SAT 92
--- NOTE | 2017-08-20 06:43 | CT ---
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 Images in the axial and coronal planes were presented for interpretation This exam was performed according to our departmental dose-optimization program, which includes automated exposure control, adjustment of the mA and/or kV according to patient size and/or use of iterative reconstruction technique. FINDINGS: The visualized portions of the lung bases are clear. The cardiomediastinal structures are within normal limits. Within the upper abdomen, the liver and spleen are normal in size and morphology. The gallbladder is normal in morphology. The intra/extrahepatic biliary tree is normal in appearance. The pancreas and adrenal glands are normal. The kidneys are normal in size bilaterally. The ureters are normal in course and caliber. There is a 8mm cyst along the upper pole the left kidney on axial image 28. The stomach and small intestines are within normal limits without evidence of bowel dilation or wall thickening. The appendix is well visualized and normal. The colon is stool filled and unremarkable. There are moderate sigmoid colonic diverticula without associated wall thickening or inflammatory changes. Within the pelvis, the bladder and rectum are normal. The prostate is age-appropriate There are no pathologically enlarged inguinal, retroperitoneal, portacaval, or mesenteric lymph nodes. The soft tissue structures of the abdominal wall are normal. The visualized osseous structures are within normal limits for the patient's age. There is left hip arthroplasty hardware noted. There are extensive vascular calcifications of the abdominal aorta and iliac arteries. Limited evaluation of the venous structures demonstrates no gross abnormalities. IMPRESSION: 1. No acute intra-abdominal process. 2. Diverticulosis without evidence of diverticulitis. 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
== END 2017-08-20 07:08 | disposition home or self-care (01) ==
LOC: ER 04:43
DX: R19.7 Diarrhea, unspecified (principal); R10.9 Unspecified abdominal pain; G89.29 Other chronic pain; M54.5 Low back pain; Z98.61 Coronary angioplasty status; Z79.899 Other long term (current) drug therapy
CPT/HCPCS: 36415; 74177; 80053; 85025; J2550; J7120

== ENCOUNTER → 2017-09-13 | Outpatient (CLI) | payer OTHER | END | disposition home or self-care (01) | LOC: YCFC.O 11:37 | PROVIDERS: ATTEND Anesthesiology Pain Medicine | DX: Z79.891 Long term (current) use of opiate analgesic (principal) ==

== ENCOUNTER 2017-10-31 07:04 | Emergency (ER) | payer OTHER ==
[2017-10-31 07:46] VITALS: BP 140/86; TEMP 97.3; O2SAT 96
--- NOTE | 2017-10-31 07:46 | ED.PDOC ---
History of Present Illness - General Chief Complaint: Trauma Stated Complaint: fall Time Seen by Provider: 10/31/17 07:38 Source: patient Exam Limitations: no limitations - History of Present Illness Initial Comments: Maxi Miles 62 y/o male stated that he slipped on the floor getting from bed this morning stating felt dizzy when he got up quick fell on both arms to the floor and also back of head hitting drawer,No loss of consciousness , remembers incident no blurry vision,no nausea vomiting no ringing in ears no hearing loss.Had skin tears both arms Occurred: just prior to arrival Pain - Upper Extremity: moderate: Elbow, left, Elbow, right Method of Injury: fell Improving Factors: rest Worsening Factors: movement Allergies/Adverse Reactions: Allergies NO KNOWN ALLERGY Allergy (Verified 10/31/17 07:29) Home Medications: Ambulatory Orders Oxycodone W/ Acetaminophen [Oxycodone/Acetaminophen 10-325 mg] 1 tab PO TID PRN 02/19/16 Gabapentin 400 mg PO TID 11/12/16 Esomeprazole Magnesium [Nexium] 40 mg PO DAILY 12/26/16 Ibuprofen [Motrin] 400 mg PO Q6HR #30 tab 12/26/16 Cephalexin Monohydrate [Keflex] 500 mg PO Q12H #10 cap 12/29/16 Methocarbamol [Robaxin] 750 mg PO TID #20 tab 05/14/17 Promethazine Tab [Phenergan Tablet] 25 mg PO .Q4H PRN #30 tab 08/20/17 Review of Systems - Review of Systems Constitutional: States: no symptoms reported EENTM: States: no symptoms reported Respiratory: States: no symptoms reported Cardiology: States: no symptoms reported Gastrointestinal/Abdominal: States: no symptoms reported Genitourinary: States: no symptoms reported Musculoskeletal: States: see HPI Skin: States: see HPI Neurological: States: no symptoms reported Past Medical History (General) - Patient Medical History Hx Seizures: No Hx Stroke: No Hx Dementia: No Hx Asthma: No Hx of COPD: No Hx Cardiac Disorders: Yes - s/p stents placed, an artery still blocked Hx Congestive Heart Failure: No Hx Pacemaker: No Hx Hypertension: No Hx Thyroid Disease: No Hx Diabetes: No Hx Gastroesophageal Reflux: No Hx Renal Disease: No Hx Cancer: No Hx of HIV: No Hx Hepatitis C: No Hx MRSA: No Surgical History: other - Vaccination History Hx Tetanus, Diphtheria Vaccination: Yes Hx Influenza Vaccination: Yes Hx Pneumococcal Vaccination: Yes - Social History Hx Tobacco Use: Yes Hx Chewing Tobacco Use: No Hx Alcohol Use: No Hx Substance Use: No Hx Substance Use Treatment: No Hx Depression: No Hx Physical Abuse: No Hx Emotional Abuse: No Hx Suspected Abuse: No - Activities of Daily Living Grooming Ability: Independent Eating (Feeding) Ability: Independent Toileting Ability: Independent - Female History Patient : No Family Medical History - Family History Mother Family History: No Known Living Status: Still Living Hx Family;Other: CIDP Father Name: Kalpesh Age (years): 95 Living Status: Still Living Hx Family Asthma: No Hx Family Congestive Heart Failure: No Hx Family Hypertension: Yes Hx Family Stroke: No Hx Cardiac Disease: Yes - Six Stents Hx Family Diabetes: No Hx Family Cancer: No Hx Family;Other: Diverticulitis, HX of [place], colectomy. Physical Exam - Physical Exam General Appearance: Alert, Comfortable, No apparent distress Eyes, Ears, Nose, Throat Exam: PERRL/EOMI, normal ENT inspection, pharynx normal Neck: non-tender, supple Cardiovascular/Respiratory: regular rate, rhythm, no M/R/G, no JVD, normal breath sounds Abdominal Exam: non-tender, no organomegaly Back Exam: no CVA tenderness, no vertebral tenderness Shoulder Exam: normal inspection, non-tender, no evidence of injury Elbow/Forearm Exam: bone tenderness - both elbows , soft tissue tenderness - both elbows Wrist Exam: normal inspection, non-tender, no evidence of injury Hand Exam: normal inspection, non-tender, no evidence of injury Neuro/Tendon: normal sensation, normal motor functions, normal tendon functions , responds to pain, no evidence tendon injury Mental Status: alert, oriented x 3 Skin Exam: normal color, warm/dry, other - skin tear elbow are bilateral Progress - Progress Progress: 10/31/17 08:07 Last Vital Signs Temp 97.3 F L 10/31/17 07:20 Pulse 90 10/31/17 07:20 Resp 20 10/31/17 07:20 BP 140/86 10/31/17 07:20 Pulse Ox 96 10/31/17 07:20 - Results/Orders Results/Orders: Skin tears both arms cleanse with Betadine then dried up then applied xerofoam gauze and covered with sterile dressin - EKG/XRAY/CT XRAY: elbow - bilateral-no fractures Departure - Departure Clinical Impression: Fall Qualifiers: Encounter type: initial encounter Qualified Code(s): W19.XXXA - Unspecified fall, initial encounter Skin tear of elbow without complication Qualifiers: Encounter type: initial encounter Laterality: unspecified laterality Qualified Code(s): S51.019A - Laceration without foreign body of unspecified elbow, initial encounter Contusion of elbow and forearm Qualifiers: Encounter type: initial encounter Laterality: unspecified laterality Qualified Code(s): S50.10XA - Contusion of unspecified forearm, initial encounter Time of Disposition: :02 Disposition: Discharge to Home or Self Care Condition: Good Departure Forms: ED Discharge - Pt. Copy, Patient Portal Self Enrollment Instructions: DI for Abrasion Referrals: Evi Schultz, COLLE[employer] [Primary Care Provider] - 1-2 Weeks Home Medications: Ambulatory Orders Oxycodone W/ Acetaminophen [Oxycodone/Acetaminophen 10-325 mg] 1 tab PO TID PRN 02/19/16 Gabapentin 400 mg PO TID 11/12/16 Esomeprazole Magnesium [Nexium] 40 mg PO DAILY 12/26/16 Ibuprofen [Motrin] 400 mg PO Q6HR #30 tab 12/26/16 Cephalexin Monohydrate [Keflex] 500 mg PO Q12H #10 cap 12/29/16 Methocarbamol [Robaxin] 750 mg PO TID #20 tab 05/14/17 Promethazine Tab [Phenergan Tablet] 25 mg PO .Q4H PRN #30 tab 08/20/17 Additional Instructions: Remove WOUND DRESSING AFTER 10 DAYS;Continue with all home medications
[2017-10-31] MEDS ORDERED: HYDROcodone 7.5MG/APAP 325MG 1 EA TAB PO ONE (08:43)
[2017-10-31] MEDS ORDERED: CEPHALEXIN MONOHYDRATE 500 MG CAP PO ONE (08:44)
--- NOTE | 2017-10-31 08:58 | RAD ---
EXAM DESCRIPTION: Elbow,Left 3 Views (accession [id number]), Elbow,Right 3 Views (accession [id number]) CLINICAL HISTORY: 62 years, Male, pain COMPARISON: None. FINDINGS: Three views the RIGHT elbow and three separate views of LEFT elbow were performed. The anterior fat pad is visible but not flared and no posterior fat pad is seen on either side. Bone mineralization is within normal limits. No fracture is seen. Bony alignment is maintained. No suspicious calcification. IMPRESSION: No RIGHT or LEFT elbow acute bony injury. Electronically signed by: Jessica Layne MD 10/31/2017 8:57 AM [facility]
--- NOTE | 2017-10-31 08:58 | RAD ---
EXAM DESCRIPTION: Elbow,Left 3 Views (accession [id number]), Elbow,Right 3 Views (accession [id number]) CLINICAL HISTORY: 62 years, Male, pain COMPARISON: None. FINDINGS: Three views the RIGHT elbow and three separate views of LEFT elbow were performed. The anterior fat pad is visible but not flared and no posterior fat pad is seen on either side. Bone mineralization is within normal limits. No fracture is seen. Bony alignment is maintained. No suspicious calcification. IMPRESSION: No RIGHT or LEFT elbow acute bony injury. Electronically signed by: Jessica Layne MD 10/31/2017 8:57 AM [facility]
== END 2017-10-31 09:07 | disposition left against medical advice (07) ==
LOC: ER 07:04
DX: S51.012A Laceration without foreign body of left elbow, initial encounter (principal); S51.011A Laceration without foreign body of right elbow, initial encounter; S50.10XA Contusion of unspecified forearm, initial encounter; Z98.61 Coronary angioplasty status; W01.190A Fall on same level from slipping, tripping and stumbling with subsequent striking against furniture, initial encounter; Y92.003 Bedroom of unspecified non-institutional (private) residence as the place of occurrence of the external cause

== ENCOUNTER → 2018-06-10 | Outpatient (CLI) | payer OTHER ==
--- NOTE | 2018-06-12 09:48 | CT ---
EXAM DESCRIPTION: Lung Screen Low Dose CLINICAL HISTORY: PERSONAL HISTORY OF TOBACCO USE, PRESENTING HAZARDS TO HEALTH COMPARISON: CT thoracic spine 06/29/2017 TECHNIQUE: Multiple low dose axial images of the chest without contrast. Multiplanar reconstructions were provided. This exam was performed according to our departmental dose-optimization program, which includes automated exposure control, adjustment of the mA and/or kV according to patient size and/or use of iterative reconstruction technique. FINDINGS: Lungs: Moderate emphysema. Scattered calcified and noncalcified pulmonary nodules in both lungs. The largest noncalcified pulmonary nodule measures 4.5 mm in the left lower lobe on series 2 image 80. No pleural effusion. Mediastinum: Limited evaluation due to lack of IV contrast. The heart is normal in size. Moderate atherosclerosis in the thoracic aorta and coronary arteries. 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 Stent in the left subclavian artery. The trachea and esophagus are unremarkable. Lymph nodes: Limited evaluation due to lack of IV contrast. Borderline increased number of mediastinal lymph nodes which remain less than 1 cm in short axis. These are favored to be reactive. Chest wall and lower neck: No significant finding. Bones: There is no destructive osseous lesion. Chronic compression fracture of T12 again demonstrated. Several chronic nonunited right posterior rib fractures. Upper abdomen: Moderate atherosclerosis in the upper abdominal aorta. 8 mm exophytic hypodense left renal lesion which is too small to completely characterize, but statistically most likely a cyst. IMPRESSION: 1. Emphysema with scattered calcified and noncalcified pulmonary nodules, with the largest noncalcified nodule measuring 4.5 mm. Continued low-dose follow-up CT chest in one year per guidelines below. 2. 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 3. Mediastinal lymph nodes which are prominent in number but less than 1 cm in short axis, nonspecific but favored to be reactive. 4. Other findings as above. Category 2 - Nodules with a very low likelihood (less than 1%) of becoming a clinically active cancer due to size or lack of growth. Nodules: Solid or part solid nodule(s) less than 6mm, new solid nodule less than 4mm. Ground glass nodule(s) less than 20mm or unchanged or slow growing ground glass nodule 20mm or greater. Cat 3 or 4 nodule unchanged for 3 or more months. Follow-up: Continue annual screening with a Low Dose Chest CT in 12 months for re-evaluation. Electronically signed by: Uriel Roberts MD 06/12/2018 9:46 AM CDT
== END ==
LOC: CT 14:00
PROVIDERS: ATTEND Family Medicine
DX: Z87.891 Personal history of nicotine dependence (principal)

== ENCOUNTER → 2018-06-17 | Outpatient (CLI) | payer OTHER | LOC: YCFC.O 09:30 | PROVIDERS: ATTEND Family Medicine | DX: R53.83 Other fatigue (principal); R35.1 Nocturia ==

== ENCOUNTER 2018-10-07 04:30 | Emergency (ER) | payer OTHER ==
[2018-10-07] MEDS ORDERED: NALOXONE HCL INJ 0.4 MG/ML VIAL ONE (05:10)
[2018-10-07] MEDS ORDERED: NALOXONE HCL INJ 0.4 MG/ML VIAL IV ONE (05:15)
--- NOTE | 2018-10-07 05:29 | ED.PDOC ---
History of Present Illness - General Source: patient, EMS Exam Limitations: clinical condition - History of Present Illness Initial Comments: Patient presents after a friend called EMS. According to EMS, the friend was talking with the patient on the phone and thought that he was not himself. The patient is able to verify that a friend called EMS but he offers little says other history and is apparently confused. He says he had a stroke 5 years ago. Denies any recreational drugs. Timing/Duration: unsure Severity: moderate Improving Factors: nothing Worsening Factors: nothing Associated Symptoms: denies symptoms <Tyler Orozco - Last Filed: 10/07/18 07:15> <Velasquez Peña - Last Filed: 10/07/18 07:58> - General Chief Complaint: Neuro Symptoms/Deficits Stated Complaint: Altered mental status Time Seen by Provider: 10/07/18 04:35 - History of Present Illness Allergies/Adverse Reactions: Allergies NO KNOWN ALLERGY Allergy (Verified 10/31/17 07:29) Home Medications: Ambulatory Orders Gabapentin 1,200 mg PO TID 10/07/18 Loratadine 10 mg PO DAILY 10/07/18 Mirtazapine [Remeron] 7.5 mg PO BEDTIME 10/07/18 Paroxetine HCl 40 mg PO DAILY 10/07/18 Prazosin HCl 2 mg PO BEDTIME 10/07/18 Propranolol HCl 40 mg PO BID 10/07/18 Risperidone 4 mg PO BEDTIME 10/07/18 Zolpidem Tartrate [Zolpidem Tartrate ER] 12.5 mg PO BEDTIME 10/07/18 Review of Systems - Review of Systems Unable to Obtain Due To: condition <Tyler Orozco - Last Filed: 10/07/18 07:15> Past Medical History (General) - Patient Medical History Hx Seizures: No Hx Stroke: No Hx Dementia: No Hx Asthma: No Hx of COPD: No Hx Cardiac Disorders: Yes - s/p stents placed, an artery still blocked Hx Congestive Heart Failure: No Hx Pacemaker: No Hx Hypertension: No Hx Thyroid Disease: No Hx Diabetes: No Hx Gastroesophageal Reflux: Yes Hx Renal Disease: No Hx Cancer: No Hx of HIV: No Hx Hepatitis C: No Hx MRSA: No - Vaccination History Hx Tetanus, Diphtheria Vaccination: Yes Hx Influenza Vaccination: Yes Hx Pneumococcal Vaccination: Yes - Social History Hx Tobacco Use: Yes Hx Chewing Tobacco Use: No Hx Alcohol Use: No Hx Substance Use: No Hx Substance Use Treatment: No Hx Depression: No Hx Physical Abuse: No Hx Emotional Abuse: No Hx Suspected Abuse: No - Female History Patient : No <Laisha Orozcoian - Last Filed: 10/07/18 07:15> Family Medical History - Family History Mother Family History: No Known Living Status: Still Living Hx Family;Other: CIDP Father Name: Kalpesh Age (years): 95 Living Status: Hx Family Asthma: No Hx Family Congestive Heart Failure: No Hx Family Hypertension: Yes Hx Family Stroke: No Hx Cardiac Disease: Yes - Six Stents Hx Family Diabetes: No Hx Family Cancer: No Hx Family;Other: Diverticulitis, HX of [place], colectomy. 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 PT IS CONFUSED WHEN AWAKE. WILL PLAN TO TRANSFER TO [facility]. - Results/Orders Results/Orders: Laboratory Tests 10/07/18 10/07/18 10/07/18 05:09 05:09 05:09 WBC 9.4 RBC 4.16 L Hgb 13.4 L Hct 40.1 L MCV 96.5 H MCH 32.2 H MCHC 33.4 RDW 12.8 Plt Count 189 MPV 9.2 Absolute Neuts (auto) 5.90 Absolute Lymphs (auto) 1.70 Absolute Monos (auto) 1.40 H Absolute Eos (auto) 0.30 Absolute Basos (auto) 0.10 Neutrophils % 62.7 Lymphocytes % 18.2 L Monocytes % 15.2 H Eosinophils % 3.2 Basophils % 0.7 Sodium 140 Potassium 3.6 Chloride 108 Carbon Dioxide 26 Anion Gap 9.6 L BUN 8 Creatinine 0.72 BUN/Creatinine Ratio 11.1 POC Glucose 104 Random Glucose 95 Serum Osmolality 277.5 Calcium 8.7 Total Bilirubin 0.6 AST 19 ALT 14 Alkaline Phosphatase 117 Serum Total Protein 6.6 Albumin 3.4 Globulin 3.2 Albumin/Globulin Ratio 1.1 TSH 1.44 Thyroxine (T4) 9.76 Urine Color Urine Appearance Urine pH Ur Specific Standard Urine Protein Urine Glucose (UA) Urine Ketones Urine Blood Urine Nitrite Urine Bilirubin Urine Urobilinogen Ur Leukocyte Esterase Urine RBC Urine WBC Ur Epithelial Cells Urine Bacteria Urine Opiates Screen Urine Barbiturates Ur Phencyclidine Scrn U Amphetamin/Meth Scrn U Benzodiazepines Scrn U Cocaine Metab Screen U Cannabinoids Screen Ethyl Alcohol 10/07/18 10/07/18 10/07/18 05:23 05:25 07:19 WBC RBC Hgb Hct MCV MCH MCHC RDW Plt Count MPV Absolute Neuts (auto) Absolute Lymphs (auto) Absolute Monos (auto) Absolute Eos (auto) Absolute Basos (auto) Neutrophils % Lymphocytes % Monocytes % Eosinophils % Basophils % Sodium Potassium Chloride Carbon Dioxide Anion Gap BUN Creatinine BUN/Creatinine Ratio POC Glucose Random Glucose Serum Osmolality Calcium Total Bilirubin AST ALT Alkaline Phosphatase Serum Total Protein Albumin Globulin Albumin/Globulin Ratio TSH Thyroxine (T4) Urine Color Yellow Urine Appearance Clear Urine pH 5.5 Ur Specific Standard >= 1.030 Urine Protein Negative Urine Glucose (UA) Negative Urine Ketones Negative Urine Blood Negative Urine Nitrite Negative Urine Bilirubin Negative Urine Urobilinogen 0.2 Ur Leukocyte Esterase Negative Urine RBC 0 Urine WBC 0 Ur Epithelial Cells 0 Urine Bacteria 0 Urine Opiates Screen Positive H Urine Barbiturates Negative Ur Phencyclidine Scrn Negative U Amphetamin/Meth Scrn Negative U Benzodiazepines Scrn Negative U Cocaine Metab Screen Negative U Cannabinoids Screen Positive H Ethyl Alcohol < 5.00 <Velasquez Peña - Last Filed: 10/07/18 07:58> Departure <Tyler Orozco - Last Filed: 10/07/18 07:15> - Departure Time of Disposition: 07:58 <Velasquez Peña - Last Filed: 10/07/18 07:58> - Departure Clinical Impression: Pneumonia, Acute confusion, Poly-drug misuser, History of CVA (cerebrovascular accident) Disposition: Transfer to Hospital Condition: Fair Departure Forms: ED Discharge - Pt. Copy, Patient Portal Self Enrollment Referrals: Manoj Dorman MD [Primary Care Provider] - 1-2 Weeks Home Medications: Ambulatory Orders Gabapentin 1,200 mg PO TID 10/07/18 Loratadine 10 mg PO DAILY 10/07/18 Mirtazapine [Remeron] 7.5 mg PO BEDTIME 10/07/18 Paroxetine HCl 40 mg PO DAILY 10/07/18 Prazosin HCl 2 mg PO BEDTIME 10/07/18 Propranolol HCl 40 mg PO BID 10/07/18 Risperidone 4 mg PO BEDTIME 10/07/18 Zolpidem Tartrate [Zolpidem Tartrate ER] 12.5 mg PO BEDTIME 10/07/18 Transfer to Outside Facility - Transfer Information Accepting Provider:: DR. HERNANDEZ Accepting Facility: [facility] Reason for Transfer: specialized care not available <Velasquez Peña - Last Filed: 10/07/18 07:58>
--- NOTE | 2018-10-07 06:45 | CT ---
EXAM DESCRIPTION: Head CLINICAL HISTORY: 62 years Male AMS COMPARISON: 06/24/2016 CT head TECHNIQUE: Contiguous axial images of the brain were obtained without the administration of intravenous contrast. This exam was performed according to our departmental dose-optimization program, which includes automated exposure control, adjustment of the mA and/or kV according to patient size and/or use of iterative reconstruction technique. FINDINGS: No intracerebral or extracerebral mass lesions are identified. There is prominence of the ventricles, sulci, cerebellar folia, and basilar cisterns consistent with volume loss. Carter/white matter distinction is maintained. There is no shift of the midline structures. There is no evidence of intracranial hemorrhage. There is no evidence of acute territorial infarct. (It should be noted that acute infarct may not be discernible in the first [address] ) There is atherosclerotic calcification in the siphons of the bilateral internal carotid and vertebral arteries. There is no acute calvarial abnormality or other discernible acute osseous abnormalities. Noted again is an old mildly depressed fracture of the right zygomatic arch. There is a small amount of fluid and/or mucosal thickening in the left ethmoid sinus and left maxillary sinus. The remainder of the visualized paranasal sinuses are clear. . The mastoids and middle ears are clear. IMPRESSION: No acute intracranial abnormality. (It should be noted that acute infarct may not be discernible in the first [address]) a follow-up head ct or mri is recommended if neurologic symptoms persist. Volume loss. ASVD. Remainder of findings as discussed above. Electronically signed by: Rakel Kee MD 10/07/2018 6:44 AM [employer]INE [employer]
--- NOTE | 2018-10-07 06:50 | RAD ---
EXAM DESCRIPTION: Chest,1 View CLINICAL HISTORY: 62 years Male AMS COMPARISON: Portable chest 12/29/2016 TECHNIQUE: A single frontal projection of the chest is obtained. FINDINGS: Heart: Allowing for magnification factors related to AP portable technique and large body habitus , the heart is normal in size and configuration . Vasculature: There is mild tortuosity and atherosclerosis of the aorta. The pulmonary vascularity is normal. Mediastinum: Unremarkable otherwise. No evidence of mass or adenopathy. Lungs: Some of the appearance of focal increased density along the right midlung probably results from under penetrated technique when compared to the left side of the hemithorax as well as superimposition of the right scapula. However, superimposed atelectasis and/or pneumonia is not excludable, and there is minimal patchy atelectasis and or pneumonia in the right lung base. Pleural spaces: There are no pleural effusions. There are no pneumothoraces. Osseous structures: There is no evidence of acute fracture, osseous destruction or osteoblastic lesions. Postoperative changes of ACDF noted. Old fractures of the right C6-7 and eighth ribs are noted. [] Tubes and catheters: None. Upper abdomen: No acute findings. [] IMPRESSION: Some of the appearance of focal increased density along the right midlung probably results from under penetrated technique when compared to the left side of the hemithorax as well as superimposition of the right scapula. However, superimposed atelectasis and/or pneumonia is not excludable, and there is minimal patchy atelectasis and or pneumonia in the right lung base. [] Remainder of findings as described above. Electronically signed by: Rakel Kee MD 10/07/2018 6:48 AM [facility]
[2018-10-07] MEDS ORDERED: cefTRIAXone SODIUM 1 GM in SODIUM CHL 0.9% 50ML MIN-BAG+ 50 ML IVPB ONE (08:00)
[2018-10-07] MEDS ORDERED: AZITHROMYCIN IV 500 MG in SODIUM CHLORIDE 0.9% 250ML 250 ML IVPB ONE (08:00)
[2018-10-07] MEDS ORDERED: cefTRIAXone SODIUM 1 GM VIAL ONE (08:04)
[2018-10-07] MEDS ORDERED: SODIUM CHL 0.9% 50ML MIN-BAG+ 50 ML IVPB ONE (08:05)
[2018-10-07 08:23] VITALS: O2SAT 97
[2018-10-07 08:32] VITALS: BP 147/97; TEMP 97.3
== END 2018-10-07 08:35 | disposition short-term general hospital (02) ==
LOC: ER 04:30
DX: J18.9 Pneumonia, unspecified organism (principal); R41.0 Disorientation, unspecified; F19.10 Other psychoactive substance abuse, uncomplicated; I51.9 Heart disease, unspecified; K21.9 Gastro-esophageal reflux disease without esophagitis; Z86.73 Personal history of transient ischemic attack (TIA), and cerebral infarction without residual deficits; Z95.5 Presence of coronary angioplasty implant and graft; Z79.899 Other long term (current) drug therapy; Z87.891 Personal history of nicotine dependence
CPT/HCPCS: 36415; 36416; 70450; 71045; 80053; 80307; 80320; 80329; 81001; 82948; 84436; 84443; 85025; 87040; 93005; J0696; J2310; J7050

== ENCOUNTER → 2019-03-10 | Outpatient (CLI) | payer OTHER ==
--- NOTE | 2019-03-11 20:50 | CT ---
EXAM DESCRIPTION: Abdomen/Pelvis w/wo Contrast: Computed Tomography. CLINICAL HISTORY: LEFT UPPER QUAD PAIN COMPARISON: None. TECHNIQUE: Spiral-axial scans at 5 x 5 mm intervals through the abdomen and pelvis before IV contrast and after Optiray 320 nonionic IV contrast: arterial phase, venous phase, and delayed phase 10 minutes. No oral contrast. Coronal and sagittal 2.0 mm reconstructions, Delayed helical-axial scans, liver through the pubic symphysis. No adverse reactions. Total Exam DLP 1151.25 mGy - cm. This exam was performed according to our departmental CT dose-optimization program which includes automated exposure control, adjustment of the mA and/or kV according to patient size and/or use of iterative reconstruction technique; to reduce radiation dose to as low as reasonably achievable (ALARA). FINDINGS: Lung bases and pleura: Minimal pleural-parenchymal scarring bilaterally. Liver, Stomach, Spleen, Adrenal Glands: In the inferior right lobe of the liver approximately 3 cm from the lateral capsule is a lesion which is low-density on the noncontrast scan, axial image 2/23. On the arterial phase, the lesion shows heterogeneous enhancement on axial images 4/45-46. On the portal venous phase, contrast is again noted but less dense, slightly dense compared to the surrounding liver parenchyma. Dimension is approximately 8 x 8.5 mm. On the delayed images, there is no enhancement seen compared to the surrounding liver parenchyma. This is consistent with a hemangioma. No residual low-density or mass effect. The remainder of the liver demonstrates normal enhancement with branching hepatic arteries seen on the arterial phase images. Spleen, adrenal glands, and stomach are unremarkable. Pancreas, Gallbladder, Ducts: Gallbladder slightly prominent but no wall thickening. Pancreas negative. No duct dilation. Kidneys and Ureters: 1 cm cyst lateral mid left renal cortex. Normal caliber and density of the ureters. Mesentery: Negative. Aorta: Moderate atherosclerotic calcification with narrowing of the distal aorta and the common iliac arteries particularly left common iliac. Small Bowel: Unremarkable. Terminal Ileum/Cecum: Negative. Appendix not seen. Colon: Normal caliber proximally but no distention from the mid transverse colon to the proximal descending colon with fecal matter and distention of the remaining colon including the rectosigmoid by gas and fecal matter. Minimal redundancy of the sigmoid colon with no complications. Pelvic Organs: No radiodense stones in the urinary bladder. Small prostate gland with multiple calcifications abutting the seminal vesicles and the bladder. No free fluid. Spine and Bony Pelvis: Spondylosis L2-3 and L3-4. Prior decompression at these levels and also L4-L5. With no effusion hardware visualized. Lateral bone and cement fusion bilaterally L4-L5. Left total hip arthroplasty. Minimal narrowing of the superior lateral right hip joint. 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 Abdominal Wall/Back Soft Tissues: Minimal calcifications in the left buttock adipose tissue. IMPRESSION: 1. Marked constipation of the mid transverse colon to the descending colon with constipation and gas distending the descending colon and rectosigmoid. No complications. No inflammatory changes. 2. 8-9 mm enhancing lesion in the inferior right lobe of the liver consistent with a hemangioma. No other lesions. Gallbladder slightly enlarged. Please see abdominal ultrasound report. 3. Prior lumbar fusion with spondylosis. SI joint arthrosis bilaterally. Electronically signed by: Ronnie Monsivais MD 03/11/2019 8:48 PM CDT
== END ==
LOC: CT 10:30
PROVIDERS: ATTEND Nurse Practitioner Family
DX: K59.00 Constipation, unspecified (principal); K76.9 Liver disease, unspecified; M47.896 Other spondylosis, lumbar region; M47.898 Other spondylosis, sacral and sacrococcygeal region; Z98.1 Arthrodesis status

== ENCOUNTER 2019-05-02 08:31 | Emergency (ER) | payer OTHER ==
[2019-05-02 08:52] VITALS: TEMP 98.8
--- NOTE | 2019-05-02 09:14 | ED.PDOC ---
History of Present Illness - General Chief Complaint: Neuro Symptoms/Deficits Stated Complaint: confused Time Seen by Provider: 05/02/19 09:07 Source: patient Exam Limitations: clinical condition - History of Present Illness Initial Comments: patient was brought in via EMS for altered LOC. Patient was found outside a congregational when he approached a stranger thinking that the strangers' car was his own. Patient was assertive but not aggressive but was strange enough that the stranger called for an ambulance and felt that he was not normal. He is able to answer questions now and seems to be becoming more alert since during our conversation. He states this morning he went with his best friend Tyler Smith to get his haircut. His friend was driving and that is the the last thing he really remembers. Patient states he does not have any known injuries. He denies any head pain or any difficulty with this before. Patient denies any alcohol or drug use. He does take Risperdal because he "hears voices" but denies diagnosis of schizophrenia. Friends that arrived here in the ER after our interview began states that to their knowledge he does not have any other diagnoses with the exception of chronic pain that he sees pain management for after neck and back surgery. One of his friends states that he believes the patient used to have seizures after his neck surgery. Patient does slur his words chronically per his friends but is normally alert and understandable. He is very difficult to understand and does not always answer questions appropriately. 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 I asked who was her and he stated she is the author of a book. After that he became a little bit more alert and did not go back to that story. Timing/Duration: unknown Improving Factors: nothing Worsening Factors: nothing Associated Symptoms: denies symptoms Allergies/Adverse Reactions: Allergies NO KNOWN ALLERGY Allergy (Verified 10/31/17 07:29) Home Medications: Ambulatory Orders Gabapentin 1,200 mg PO TID 10/07/18 Loratadine 10 mg PO DAILY 10/07/18 Mirtazapine [Remeron] 7.5 mg PO BEDTIME 10/07/18 Paroxetine HCl 40 mg PO DAILY 10/07/18 Prazosin HCl 2 mg PO BEDTIME 10/07/18 Propranolol HCl 40 mg PO BID 10/07/18 Risperidone 4 mg PO BEDTIME 10/07/18 Zolpidem Tartrate [Zolpidem Tartrate ER] 12.5 mg PO BEDTIME 10/07/18 Review of Systems - Review of Systems Constitutional: States: no symptoms reported. Denies: chills, fever, malaise EENTM: States: no symptoms reported. Denies: eye pain, ear pain, nose congestion, throat pain Respiratory: States: no symptoms reported. Denies: cough, short of breath, wheezing Cardiology: States: no symptoms reported. Denies: chest pain, edema, palpitations, syncope Gastrointestinal/Abdominal: States: no symptoms reported. Denies: abdominal pain, constipation, diarrhea, nausea, vomiting Genitourinary: States: no symptoms reported. Denies: discharge, dysuria, frequency, hematuria Musculoskeletal: States: no symptoms reported Skin: States: no symptoms reported Past Medical History (General) - Patient Medical History Hx Seizures: No Hx Stroke: No Hx Dementia: No Hx Asthma: No Hx of COPD: No Hx Cardiac Disorders: Yes - s/p stents placed, an artery still blocked Hx Congestive Heart Failure: No Hx Pacemaker: No Hx Hypertension: No Hx Thyroid Disease: No Hx Diabetes: No Hx Gastroesophageal Reflux: Yes Hx Renal Disease: No Hx Cancer: No Hx of HIV: No Hx Hepatitis C: No Hx MRSA: No - Vaccination History Hx Tetanus, Diphtheria Vaccination: Yes Hx Influenza Vaccination: Yes Hx Pneumococcal Vaccination: Yes - Social History Hx Tobacco Use: Yes Hx Chewing Tobacco Use: No Hx Alcohol Use: No Hx Substance Use: No Hx Substance Use Treatment: No Hx Depression: No Hx Physical Abuse: No Hx Emotional Abuse: No Hx Suspected Abuse: No - Female History Patient : No Family Medical History - Family History Mother Family History: No Known Living Status: Still Living Hx Family;Other: CIDP Father Name: Kalepsh Age (years): 95 Living Status: Hx Family Asthma: No Hx Family Congestive Heart Failure: No Hx Family Hypertension: Yes Hx Family Stroke: No Hx Cardiac Disease: Yes - Six Stents Hx Family Diabetes: No Hx Family Cancer: No Hx Family;Other: Diverticulitis, HX of DE, colectomy. Physical Exam - Physical Exam General Appearance: Alert, Comfortable, No apparent distress Eye Exam: bilateral normal ENT Exam: normal ENT inspection, hearing grossly normal, TMs normal, pharynx normal, other - no injury to head noted Neck: non-tender, full range of motion, supple, normal inspection Respiratory: chest non-tender, lungs clear, normal breath sounds, no respiratory distress Cardiovascular/Chest: normal peripheral pulses, regular rate, rhythm, no edema, no gallop, no JVD Peripheral Pulses: radial,right: 2+, radial,left: 2+ Gastrointestinal/Abdominal: normal bowel sounds, non tender, soft, no organomegaly, no pulsatile mass, other - erythematous non blanching rash around umbilicus Back Exam: normal inspection, no CVA tenderness, no vertebral tenderness Extremities Exam: non-tender, normal range of motion, no evidence of injury Mental Status: alert, other - 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 His friends have been at bedside and state back to normal. His speech is cleared and he is answering all questions appropriately. He denies any concerns. He states he has some left over pain medication that he took but is not currently prescribed and admits to marijuana use. We have educated him at length about not using these medications and the risks of mixing medication with illicit drug use. - Results/Orders Results/Orders: Patient Name: JUAN DANIEL MOSES Gender: Male Date of : 1955 Referring Physician: MICHELLE FELTON Organization: [facility] Accession Number: [id number] Requested Date: May 02, 2019 10:38 Report Status: Final Requested Procedure: 1 Procedure Description: Chest,1 View Modality: CR Findings Reporting MD: Braxton Ferrer Fellow MD: Not available Dictation Time: Rn Clinical Resource: Not available Utility Tender Carding Date: EXAM DESCRIPTION: Chest,1 View CLINICAL HISTORY: 63 years Male, altered LOC COMPARISON: October 07, 2018. TECHNIQUE: AP radiograph of the chest was obtained. FINDINGS: Trachea is midline.The cardiomediastinal silhouette is normal in size. The pulmonary vasculature is within normal limits.The lungs are clear with no acute consolidation.No evidence of pleural effusions. IMPRESSION: No acute cardiopulmonary process Patient Name: JUAN DANIEL MOSES Gender: Male Date of : 1955 Referring Physician: MICHELLE FELTON Organization: [facility] Accession Number: [id number] Requested Date: May 02, 2019 09:07 Report Status: Final Requested Procedure: 1 Procedure Description: Head Modality: CT Findings Reporting MD: Tristin Syed Fellow MD: Not available Dictation Time: Rn Clinical Resource: Not available Utility Tender [employer]ing Date: EXAM DESCRIPTION: CT head without contrast CLINICAL HISTORY: Altered mental status. Decreased level of consciousness. Found wandering COMPARISON: 10/07/2018 TECHNIQUE: Noncontrast spiral CT of the brain. This exam was performed according to our departmental dose-optimization program, which includes automated exposure control, adjustment of the mA and/or kV according to patient size and/or use of iterative reconstruction technique FINDINGS: No intracranial hemorrhage, infarction or mass lesion. Normal posey-white matter differentiation Ventricles are normal in size and configuration No calvarial or skullbase fracture. No fluid in the paranasal sinuses or mastoid air cells IMPRESSION: Negative noncontrast head CT CT is insensitive for early evaluation of acute stroke. If there is clinical concern for acute ischemia, an MRI may be considered. 05/02/19 09:15 EKG STAT Laboratory Results WBC 10.3 K/mm3 (4.8-10.8) 05/02/19 09:26 RBC 4.09 M/mm3 (4.70-6.10) L 05/02/19 09:26 Hgb 13.2 gm/dL (14.0-18.0) L 05/02/19 09:26 Hct 39.4 % (42.0-52.0) L 05/02/19 09:26 MCV 96.3 fl (80.0-94.0) H 05/02/19 09:26 MCH 32.4 pg (27.0-31.0) H 05/02/19 09:26 MCHC 33.6 g/dL (33.0-37.0) 05/02/19 09:26 RDW 13.2 % (11.5-14.5) 05/02/19 09:26 Plt Count 236 K/mm3 (130-400) 05/02/19 09:26 MPV 8.2 fl (7.40-10.4) 05/02/19 09:26 Absolute Neuts (auto) 6.90 K/uL (1.8-6.8) H 05/02/19 09:26 Absolute Lymphs (auto) 1.70 K/uL (1.0-3.4) 05/02/19 09:26 Absolute Monos (auto) 1.40 K/uL (0.2-0.8) H 05/02/19 09:26 Absolute Eos (auto) 0.30 K/uL (0.0-0.4) 05/02/19 09:26 Absolute Basos (auto) 0.10 K/uL (0.0-0.1) 05/02/19 09:26 Neutrophils % 67.0 % (42.0-78.0) 05/02/19 09:26 Lymphocytes % 16.2 % (20.0-50.0) L 05/02/19 09:26 Monocytes % 13.4 % (2.0-9.0) H 05/02/19 09:26 Eosinophils % 2.6 % (1.0-5.0) 05/02/19 09:26 Basophils % 0.8 % (0.0-2.0) 05/02/19 09:26 Sodium 137 mmol/L (135-145) 05/02/19 09:26 Potassium 4.1 mmol/L (3.6-5.0) 05/02/19 09:26 Chloride 103 mmol/L (101-111) 05/02/19 09:26 Carbon Dioxide 24 mmol/L (21-31) 05/02/19 09:26 Anion Gap 14.1 (12-18) 05/02/19 09:26 BUN 18 mg/dL (7-18) 05/02/19 09:26 Creatinine 0.84 mg/dL (0.6-1.3) 05/02/19 09:26 BUN/Creatinine Ratio 21.4 (10-20) H 05/02/19 09:26 Random Glucose 96 mg/dL (70-105) 05/02/19 09:26 Serum Osmolality 275.6 mOsm/L (275-295) 05/02/19 09:26 Calcium 9.3 mg/dL (8.4-10.2) 05/02/19 09:26 Total Bilirubin 0.6 mg/dL (0.2-1.0) 05/02/19 09:26 AST 22 IU/L (10-42) 05/02/19 09:26 ALT 14 IU/L (10-60) 05/02/19 09:26 Alkaline Phosphatase 101 IU/L (42-121) 05/02/19 09:26 Creatine Kinase 96 IU/L (38-174) 05/02/19 09:26 CK-MB (CK-2) 1.5 ng/mL (0.0-4.4) 05/02/19 09:26 CK-MB (CK-2) % Not Reportable 05/02/19 09:26 Troponin I < 0.02 ng/mL (0.01-0.05) 05/02/19 09:26 Serum Total Protein 7.4 gm/dL (6.4-8.2) 05/02/19 09:26 Albumin 3.8 g/dl (3.2-5.5) 05/02/19 09:26 Globulin 3.6 gm/dL (2.3-3.5) H 05/02/19 09:26 Albumin/Globulin Ratio 1.1 (1.1-1.9) 05/02/19 09:26 Urine Color Yellow (Yellow) 05/02/19 10:45 Urine Appearance Clear (Clear) 05/02/19 10:45 Urine pH 6.0 (4.5-7.8) 05/02/19 10:45 Ur Specific [place] 1.020 (1.005-1.030) 05/02/19 10:45 Urine Protein Negative mg/dL 05/02/19 10:45 Urine Glucose (UA) Negative mg/dL (Negative) 05/02/19 10:45 Urine Ketones Negative mg/dL (NEGATIVE) 05/02/19 10:45 Urine Blood Negative (Negative) 05/02/19 10:45 Urine Nitrite Negative 05/02/19 10:45 Urine Bilirubin Negative (NEGATIVE) 05/02/19 10:45 Urine Urobilinogen 0.2 mg/dL (0.2-1.0) 05/02/19 10:45 Ur Leukocyte Esterase Negative (Negative) 05/02/19 10:45 Urine RBC 0-1 /hpf 05/02/19 10:45 Urine WBC 0-1 /hpf 05/02/19 10:45 Ur Epithelial Cells 0-1 /hpf 05/02/19 10:45 Urine Bacteria 0 05/02/19 10:45 Urine Opiates Screen Positive ng/mL (2000) H 05/02/19 10:48 Urine Barbiturates Negative ng/mL (200) 05/02/19 10:48 Ur Phencyclidine Scrn Negative ng/mL (25) 05/02/19 10:48 U Amphetamin/Meth Scrn Negative ng/mL (1000) 05/02/19 10:48 U Benzodiazepines Scrn Negative ng/mL (200) 05/02/19 10:48 U Cocaine Metab Screen Negative ng/mL (300) 05/02/19 10:48 U Cannabinoids Screen Positive ng/mL (50) H 05/02/19 10:48 Ethyl Alcohol < 5.40 mg/dL (0-79) 05/02/19 09:26 - EKG/XRAY/CT EKG: Sinus Comments: early repolarization HR 70 Departure - Departure Clinical Impression: Altered awareness, transient, Substance abuse Disposition: Discharge to Home or Self Care Condition: Good Departure Forms: ED Discharge - Pt. Copy, Patient Portal Self Enrollment Referrals: Manoj Dorman MD [Primary Care Provider] - 1-2 Weeks Home Medications: Ambulatory Orders Gabapentin 1,200 mg PO TID 10/07/18 Loratadine 10 mg PO DAILY 10/07/18 Mirtazapine [Remeron] 7.5 mg PO BEDTIME 10/07/18 Paroxetine HCl 40 mg PO DAILY 10/07/18 Prazosin HCl 2 mg PO BEDTIME 10/07/18 Propranolol HCl 40 mg PO BID 10/07/18 Risperidone 4 mg PO BEDTIME 10/07/18 Zolpidem Tartrate [Zolpidem Tartrate ER] 12.5 mg PO BEDTIME 10/07/18 Additional Instructions: return to ER for confusion, altered LOC. Stop pain medication that is not currently prescribed and marijuana use.
--- NOTE | 2019-05-02 09:36 | CT ---
EXAM DESCRIPTION: CT head without contrast CLINICAL HISTORY: Altered mental status. Decreased level of consciousness. Found wandering COMPARISON: 10/07/2018 TECHNIQUE: Noncontrast spiral CT of the brain. This exam was performed according to our departmental dose-optimization program, which includes automated exposure control, adjustment of the mA and/or kV according to patient size and/or use of iterative reconstruction technique FINDINGS: No intracranial hemorrhage, infarction or mass lesion. Normal posey-white matter differentiation Ventricles are normal in size and configuration No calvarial or skullbase fracture. No fluid in the paranasal sinuses or mastoid air cells IMPRESSION: Negative noncontrast head CT CT is insensitive for early evaluation of acute stroke. If there is clinical concern for acute ischemia, an MRI may be considered. Electronically signed by: Tristin Syed MD 05/02/2019 9:35 AM CDT
[2019-05-02] MEDS ORDERED: SODIUM CHLORIDE 0.9% 1000ML 1,000 ML IVS ONE (10:09)
--- NOTE | 2019-05-02 11:27 | RAD ---
EXAM DESCRIPTION: Chest,1 View CLINICAL HISTORY: 63 years Male, altered LOC COMPARISON: October 07, 2018. TECHNIQUE: AP radiograph of the chest was obtained. FINDINGS: Trachea is midline.The cardiomediastinal silhouette is normal in size. The pulmonary vasculature is within normal limits.The lungs are clear with no acute consolidation.No evidence of pleural effusions. IMPRESSION: No acute cardiopulmonary process. Electronically signed by: Braxton Ferrer MD 05/02/2019 11:25 AM CDT
[2019-05-02 12:32] VITALS: BP 162/91; O2SAT 96
== END 2019-05-02 12:21 | disposition home or self-care (01) ==
LOC: ER 08:31
DX: R40.4 Transient alteration of awareness (principal); F19.10 Other psychoactive substance abuse, uncomplicated; K21.9 Gastro-esophageal reflux disease without esophagitis; Z98.61 Coronary angioplasty status; Z79.899 Other long term (current) drug therapy
CPT/HCPCS: 36415; 70450; 71045; 80053; 80307; 80320; 81001; 82550; 82553; 84484; 85025; 93005; J7030

== ENCOUNTER → 2019-06-13 | Outpatient (CLI) | payer OTHER ==
--- NOTE | 2019-06-14 15:27 | CT ---
Procedure: CT LUNG SCREENING Exam Date: 03/13/2019. Ordering Provider: Daniel Hilton Clinical Indication: LUNG SCREENING smoking cessation x 1 year. 25 pack year smoking. This patient meets eligibility criteria for low-dose CT lung cancer screening. Comparison: Low-dose CT lung cancer screening examination 06/10/2018. Technique: Using a multislice scanner, sequential helical axial imaging was obtained in the thorax, 2.5 mm thickness, 2.5 mm separation, from the level of the thoracic inlet through the lung bases without IV contrast. A low dose protocol was utilized for BMI less than 30: BMI: 21.1. CTDI: 1.76 mGy. 120. kVp. 45 mA. DLP 65.6 mGy-centimeters. 2D sagittal and coronal reconstructed images, 6.0 mm thickness, were obtained. This exam was performed according to our departmental dose optimization program which includes use of automated exposure control, adjustment of the mA and/or kV according to patient size and/or use of iterative reconstruction technique. Nodule measurements under 10 mm are given as mean value of 3 axes diameters. FINDINGS: Lungs and large airways: Bilateral blebs and bulla with the bulla predominantly abutting the pleura and more numerous upper lung espino. Paraseptal type distribution. Atelectasis in the posterior segment right upper lobe and the base of the segment also new infiltrate in the upper lobe abutting the right hilum. New partially solid 5.6 mm nodule versus infiltrate in the posterior segment, on axial series 2, image 55. Associated with multiple small blebs. Stable subpleural nodule in the inferior lateral segment. Stable pleural-parenchymal scarring in the right middle lobe, and left lower lobe. Stable calcified subpleural nodule lateral superior segment left lower lobe. Stable 4.7 mm monalisa-fissural solid nodule abutting the posterior superior aspect of the left major fissure. Minimal atelectasis right lower lobe. Minimal bilateral perihilar peribronchial wall cuffing. No new nodules. No large masses. Pleura and space: Stable bilateral apical pleural thickening with no effusion or pneumothorax. Mediastinum and chana: evaluation limited by low dose technique and lack of IV contrast. Stable lymph nodes mediastinum. Heart and great vessels: Atherosclerotic calcification brachiocephalic vessels aortic arch and descending thoracic aorta. Also coronary arteries with calcifications and stents. Stable stent proximal left subclavian artery. 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 Chest wall, lower neck, axillae: Evaluation also limited by same factors as described above. Negative. Upper abdomen: Evaluation limited by low-dose technique. No free air or free fluid in the included peritoneal space. Atherosclerotic calcifications. Minimal spondylosis thoracic spine. Small superior compression fracture T12 stable. Osseous structures: Evaluation limited by low dose MIP technique. Healed lateral right sixth and seventh rib fractures with deformity. IMPRESSION: 1. New region of atelectasis and infiltrate in the posterior segment and base of the right upper lobe since the prior study. Associated with multiple small blebs. 5.6 mm partially solid nodule versus infiltrate within the same region. No new dominant solid mass.. [facility] Best Practice recommendations: Please see below for Lung RADS category and FOLLOW-UP.* *Lung RADS category CATEGORY 3 - Probably benign (1-2% malignancy probability), short term follow-up suggested. NODULES: Solid nodule(s) 6mm (113.1 mm3) to less than 8mm (268.1 mm3) at baseline, or new 4mm (33.5 mm3) to under 6mm (113.1 mm3) solid nodule. Part solid nodule total diameter >= 6mm (113.1 mm3) with solid component less than 6mm, or new less than 6mm total diameter nodule] OR new <6 mm (113.1 mm3) total diameter. GGN >= 30 mm (>=79009 mm3) on baseline CT or new. FOLLOW-UP: Please return for a Low Dose Chest CT in 6 months for re-evaluation. Electronically signed by: Ronnie Monsivais MD 06/14/2019 3:25 PM CDT
== END ==
LOC: CT 10:00
PROVIDERS: ATTEND Family Medicine
DX: Z87.891 Personal history of nicotine dependence (principal); J98.11 Atelectasis; R91.8 Other nonspecific abnormal finding of lung field

== ENCOUNTER → 2019-09-18 | Outpatient (CLI) | payer OTHER ==
--- NOTE | 2019-09-18 15:04 | US ---
EXAM DESCRIPTION: Carotid Duplex: ULTRASOUND. CLINICAL HISTORY: 63 years Male CAROTID BRUIT. Previous right carotid autograft for stenosis. COMPARISON: CT scan of the head April 2019. TECHNIQUE: Transcutaneous scanning utilizing posey-scale and Doppler modes to evaluate the bilateral carotid systems and vertebral arteries. Percentage of diameter of stenosis or no stenosis recorded will be based upon NASCET criteria. FINDINGS: Peak systolic/end diastolic (CM-Sec) CCA Right 65/17 Left 101/30. ICA Right proximal 99/34, mid 74/39. Left proximal 84/30, mid 101/35. Vertebral Right 65/20 Left 67/18. ECA (PS Only) Right 53 left 107. ICA/CCA peak systolic ratio: Right 1.5 Left 1.0 ICA/CCA end diastolic ratio: Right 2.0 Left 1.2 Vertebral arteries: antegrade flow. Comments Comments: Atherosclerotic calcifications and atherosclerotic soft plaque in the right common carotid bulb and bifurcation. Right mid bulb: Area stenosis 94% and mean diameter stenosis 78%. Proximal right ICA: Area stenosis 47% and mean diameter stenosis 34 %. Large calcified plaque in the left common carotid bulb. Distal left CCA: less than 25% area and diameter stenosis. Left CCA bulb: 54% area stenosis 40 % mean diameter stenosis. Proximal left ICA: 52% area stenosis and 29% mean diameter stenosis. IMPRESSION: 1. Doppler evaluation of the bilateral carotid systems and vertebral arteries shows no hemodynamically significant stenoses. However grayscale evaluation of the right common carotid bifurcation shows critical diameter and area stenosis of the autograft.. 2. Moderate amount of calcified plaque seen in the carotid arteries more right than left. Bilateral vertebral arteries showed antegrade-cephalad flow. Electronically signed by: Ronnie Monsivais MD 09/18/2019 3:[address] [facility]
== END ==
LOC: US 11:12
PROVIDERS: ATTEND Family Medicine
DX: I65.23 Occlusion and stenosis of bilateral carotid arteries (principal)

== ENCOUNTER → 2019-09-25 | Outpatient (CLI) | payer OTHER ==
--- NOTE | 2019-09-25 14:44 | CT ---
EXAM DESCRIPTION: CTA Neck CLINICAL HISTORY: CAROTID ARTERIOSCLEROSIS COMPARISON: Ultrasound September 18, 2019 TECHNIQUE: Postcontrast CTA images of the neck soft tissues are obtained. Coronal and sagittal reconstructed images are obtained. Three-D [id number] This exam was performed according to our departmental dose-optimization program, which includes automated exposure control, adjustment of the mA and/or kV according to patient size and/or use of iterative reconstruction technique . FINDINGS: Calcifications of the thoracic aortic arch. 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 Vascular stent in the left subclavian artery appears patent, but is not well evaluated secondary to streak artifact from dense contrast in the left subclavian vein Small right common carotid artery. Severe soft plaque in the proximal carotid bulb results in greater than 75% stenosis by NASCET criteria over 6 mm length. Postsurgical changes from carotid endarterectomy above this level are seen with surgical clips around the carotid artery. No other areas of plaque or significant vessel narrowing or seen. The remainder of the cervical ICA is patent. Moderate tortuosity of the cervical ICA skull base is seen. Moderate irregular eccentric calcified plaque of the left carotid bulb to proximal ICA seen with less than 25% stenosis of the internal carotid artery by NASCET criteria. Mild calcified plaque of the intracranial internal carotid arteries bilaterally resulting in mild stenosis. Vertebral arteries are relatively codominant without high-grade or flow limiting stenosis. Moderate centrilobular and paraseptal emphysematous changes to lung apices are seen. ACDF at C4-5 without complicating features. Mild spondylitic changes of the spine are seen. IMPRESSION: Postsurgical changes from right carotid endarterectomy. Severe focal stenosis at the proximal carotid bulb/carotid endarterectomy site with greater than 75% stenosis by NASCET criteria over a 6 mm length. Moderate irregular calcified plaque in the left carotid bulb to proximal ICA with less than 25% stenosis of the ICA. Other findings as described in body of report. Electronically signed by: Paulo Roper MD 09/25/2019 2:43 PM [employer]
== END ==
LOC: CT 11:39
PROVIDERS: ATTEND Family Medicine
DX: I25.10 Atherosclerotic heart disease of native coronary artery without angina pectoris (principal); I65.23 Occlusion and stenosis of bilateral carotid arteries; Z98.890 Other specified postprocedural states; Z86.79 Personal history of other diseases of the circulatory system

== ENCOUNTER 2019-10-01 07:57 | Emergency (ER) | payer OTHER ==
--- NOTE | 2019-10-01 08:13 | ED.PDOC ---
History of Present Illness - General Chief Complaint: Lower Extremity Injury Stated Complaint: right ankle/foot pain Time Seen by Provider: 10/01/19 08:12 - History of Present Illness Initial Comments: 63M presents w R ankle swelling after fall getting out bed this morning. immediate pop sensation, pain, swelling, now limiting his ability to ambulate. to tx attempted yet. Allergies/Adverse Reactions: Allergies NO KNOWN ALLERGY Allergy (Verified 10/31/17 07:29) Home Medications: Ambulatory Orders Gabapentin 1,200 mg PO TID 10/07/18 Propranolol HCl 60 mg PO BID 10/07/18 Cyclobenzaprine HCl [Flexeril] 10 mg PO TID 05/02/19 Carbidopa-Levodopa [Carbidopa/Levodopa 25-100 mg] 1 tab PO TID 10/01/19 Duloxetine HCl [Cymbalta] 60 mg PO DAILY 10/01/19 Ibuprofen [Ibu] 600 mg PO TID #20 tab 10/01/19 Ondansetron Odt [Zofran ODT] 4 mg PO Q8H PRN #10 tab 10/01/19 Prazosin HCl [Minipress] 2 mg PO DAILY 10/01/19 Risperidone 4 mg PO BID 10/01/19 Tramadol HCl 50 mg PO Q6HR PRN #15 tab 10/01/19 Review of Systems - Review of Systems Review of Systems: 10/01/19 08:30 General: Denies generalized weakness, fever, arthralgia/myalgia HEENT: Denies sore throat, rhinorrhea Cardiovascular: Denies chest pain, palpitations Respiratory: Denies SOB, cough Gastrointestinal: Denies abdominal pain, vomiting, diarrhea : Denies dysuria, frequency Musculoskeletal: has extremity pain, extremity swelling, as in HPI Integument: Denies rash, itching Neuro: Denies focal weakness or numbness Psych: Denies depression, hallucinations. Past Medical History (General) - Patient Medical History Hx Seizures: No Hx Stroke: No Hx Dementia: No Hx Asthma: No Hx of COPD: No Hx Cardiac Disorders: Yes - s/p stents placed, an artery still blocked Hx Congestive Heart Failure: No Hx Pacemaker: No Hx Hypertension: No Hx Thyroid Disease: No Hx Diabetes: No Hx Gastroesophageal Reflux: Yes Hx Renal Disease: No Hx Cancer: No Hx of HIV: No Hx Hepatitis C: No Hx MRSA: No - Vaccination History Hx Tetanus, Diphtheria Vaccination: Yes Hx Influenza Vaccination: Yes Hx Pneumococcal Vaccination: Yes - Social History Hx Tobacco Use: Yes Hx Chewing Tobacco Use: No Hx Alcohol Use: No Hx Substance Use: No Hx Substance Use Treatment: No Hx Depression: No Hx Physical Abuse: No Hx Emotional Abuse: No Hx Suspected Abuse: No - Female History Patient : No Family Medical History - Family History Mother Family History: No Known Living Status: Still Living Hx Family;Other: CIDP Father Name: Kalpesh Age (years): 95 Living Status: Hx Family Asthma: No Hx Family Congestive Heart Failure: No Hx Family Hypertension: Yes Hx Family Stroke: No Hx Cardiac Disease: Yes - Six Stents Hx Family Diabetes: No Hx Family Cancer: No Hx Family;Other: Diverticulitis, HX of VA, colectomy. Physical Exam - Physical Exam Comments: General Appearance: Patient is awake and alert. Skin: Warm and dry. No diaphoresis. No rash or other lesions. Head: Normocephalic/atraumatic. Eyes: PERRL, lids, conjunctiva and sclera unremarkable. EOMI intact. ENT: No nasal discharge. Oropharynx. Without erythema, exudate, lesions. Moist mucous membranes. Neck: Supple. No LAD. No tenderness. No JVD noted. Respiratory: Normal rate and effort. Breath sounds clear bilaterally. Cardiovascular: Regular rate. Heart sounds normal. No murmur. GI: Abdomen soft, non-distended and non-tender. No rebound/guarding. Bowel sounds normal. Back: No tenderness Musculoskeletal: Extremities- R lateral ankle swelling, lateral malleolus tenderness. no calcaneus swelling, o/w. Normal range of motion. No effusion, cyanosis, edema. Neurological: Alert. No facial palsy. Speech clear. Gag intact. No motor deficit, str symmetric. No sensory deficit. Progress - Progress Progress: 10/01/19 08:32 Vital Signs - 24 hr 10/01/19 08:10 Temperature 97.3 F L Pulse Rate [ 73 Left Brachial] Respiratory 16 Rate Blood Pressure 136/73 [Left Arm] O2 Sat by Pulse 95 Oximetry 10/01/19 09:07 x-ray reviewed, no obvious fracture. Feels better after medications. Have placed an 3-D walking B, ambulated here in the ED, stable, pain well-tolerated. - Results/Orders Results/Orders: Foot and ankle x-rays negative, per Radiology interp - EKG/XRAY/CT XRAY: foot Xray Comments: no obvious fracture, on my review in either foot or ankle. Departure - Departure Clinical Impression: Sprain of right ankle or foot Disposition: Discharge to Home or Self Care Condition: Good Departure Forms: ED Discharge - Pt. Copy, Patient Portal Self Enrollment Instructions: Ankle Sprain Activity: increase activity as tolerated Referrals: Manoj Dorman MD [Primary Care Provider] - 1-2 Weeks Prescriptions: Tramadol HCl 50 mg PO Q6HR PRN #15 tab PRN Reason: Pain Ibuprofen [Ibu] 600 mg PO TID #20 tab Ondansetron Odt [Zofran ODT] 4 mg PO Q8H PRN #10 tab PRN Reason: Nausea Home Medications: Ambulatory Orders Gabapentin 1,200 mg PO TID 10/07/18 Propranolol HCl 60 mg PO BID 10/07/18 Cyclobenzaprine HCl [Flexeril] 10 mg PO TID 05/02/19 Carbidopa-Levodopa [Carbidopa/Levodopa 25-100 mg] 1 tab PO TID 10/01/19 Duloxetine HCl [Cymbalta] 60 mg PO DAILY 10/01/19 Ibuprofen [Ibu] 600 mg PO TID #20 tab 10/01/19 Ondansetron Odt [Zofran ODT] 4 mg PO Q8H PRN #10 tab 10/01/19 Prazosin HCl [Minipress] 2 mg PO DAILY 10/01/19 Risperidone 4 mg PO BID 10/01/19 Tramadol HCl 50 mg PO Q6HR PRN #15 tab 10/01/19
[2019-10-01] MEDS ORDERED: HYDROcodone 5MG/APAP 325MG 1 EA TAB PO ONE (08:18)
[2019-10-01] MEDS ORDERED: ONDANSETRON ODT (ER DISP) 8 MG TAB PO ONE (08:18)
[2019-10-01] MEDS ORDERED: IBUPROFEN 200 MG TAB PO ONE (08:18)
[2019-10-01] MEDS ORDERED: ONDANSETRON ODT 8 MG TAB SL ONE (08:23)
[2019-10-01 09:33] VITALS: BP 146/85; TEMP 98.2; O2SAT 93
--- NOTE | 2019-10-01 09:58 | RAD ---
EXAM DESCRIPTION: Ankle, right 3 Views : CLINICAL HISTORY: fall, lateral swelling . COMPARISON: None . TECHNIQUE: Three view x-ray examination of right ankle is submitted. FINDINGS: There is no evidence of fracture, subluxation, dislocation or deformity. There is presence of lateral malleolar soft tissue swelling. The bones are normally mineralized . The visualized joint spaces are normal. IMPRESSION: No evidence of fracture. Electronically signed by: Vero Gleason MD 10/01/2019 9:57 AM [facility]
--- NOTE | 2019-10-01 10:10 | RAD ---
PROCEDURE: XR Right Foot Complete, 3 or More Views CLINICAL INDICATION: The patient is 63 years old and is Male; fall, 5th MT tender, swelling MAIN TECHNIQUE: Frontal, lateral and oblique views of the right foot. COMPARISON: Contralateral foot x-ray from 11/10/2013. FINDINGS: BONES/JOINTS: No acute fracture noted. No dislocation. Joint spaces maintained. Minor degenerative calcification at the dorsal aspect of the midfoot. SOFT TISSUES: No radiopaque foreign body. No significant soft tissue swelling noted. IMPRESSION: Unremarkable right foot x-rays. Electronically signed by: Thierry Monterroso MD 10/01/2019 10:09 AM [facility]
== END 2019-10-01 09:32 | disposition home or self-care (01) ==
LOC: ER 07:57
DX: S93.401A Sprain of unspecified ligament of right ankle, initial encounter (principal); I51.9 Heart disease, unspecified; K21.9 Gastro-esophageal reflux disease without esophagitis; Z95.5 Presence of coronary angioplasty implant and graft; Z87.891 Personal history of nicotine dependence; Z79.899 Other long term (current) drug therapy; W06.XXXA Fall from bed, initial encounter; Y92.9 Unspecified place or not applicable

== ENCOUNTER → 2019-10-31 | Outpatient (CLI) | payer OTHER | LOC: RESP 12:06 | PROVIDERS: ATTEND Family Medicine | DX: R94.31 Abnormal electrocardiogram [ECG] [EKG] (principal) ==

== ENCOUNTER → 2019-12-12 | Outpatient (CLI) | payer OTHER | DX: Z87.891 Personal history of nicotine dependence (principal); R91.1 Solitary pulmonary nodule; R91.8 Other nonspecific abnormal finding of lung field ==

== ENCOUNTER 2020-08-25 12:53 | Emergency (ER) | payer MEDICARE, OTHER ==
--- NOTE | 2020-08-25 13:52 | ED.PDOC ---
History of Present Illness - General Chief Complaint: Chest Pain/IA Time Seen by Provider: 08/25/20 13:15 Source: patient - History of Present Illness Initial Comments: PATIENT FELL EARLIER IN THE DAY GETTING OUT OF BED AND HIT HIS LEFT POSTERIOR CHEST ON AN OBJECT, HE HAS HAD SEVERE PAIN IN HIS POSTERIOR LEFT BACK SINCE THEN, HE DID TRY SOME ADVIL FOR THE PAIN, BUT THE PAIN IS STILL SEVERE. Allergies/Adverse Reactions: Allergies NO KNOWN ALLERGY Allergy (Verified 10/31/17 07:29) Home Medications: Ambulatory Orders Gabapentin 1,200 mg PO TID 10/07/18 Propranolol HCl 60 mg PO BID 10/07/18 Cyclobenzaprine HCl [Flexeril] 10 mg PO TID 05/02/19 Carbidopa-Levodopa [Carbidopa/Levodopa 25-100 mg] 1 tab PO TID 10/01/19 Duloxetine HCl [Cymbalta] 60 mg PO DAILY 10/01/19 Ibuprofen [Ibu] 600 mg PO TID #20 tab 10/01/19 Ondansetron Odt [Zofran ODT] 4 mg PO Q8H PRN #10 tab 10/01/19 Prazosin HCl [Minipress] 2 mg PO DAILY 10/01/19 Risperidone 4 mg PO BID 10/01/19 Tramadol HCl 50 mg PO Q6HR PRN #15 tab 10/01/19 Tramadol HCl [Ultram] 50 mg PO Q4H PRN #30 tab 08/25/20 Review of Systems - Review of Systems Constitutional: States: no symptoms reported. Denies: chills, fever EENTM: States: no symptoms reported Respiratory: Denies: cough, orthopnea, short of breath Cardiology: States: no symptoms reported Gastrointestinal/Abdominal: States: no symptoms reported Past Medical History (General) - Patient Medical History Hx Seizures: No Hx Stroke: No Hx Dementia: No Hx Asthma: No Hx of COPD: No Hx Cardiac Disorders: Yes - s/p stents placed, an artery still blocked Hx Congestive Heart Failure: No Hx Pacemaker: No Hx Hypertension: No Hx Thyroid Disease: No Hx Diabetes: No Hx Gastroesophageal Reflux: Yes Hx Renal Disease: No Hx Cancer: No Hx of HIV: No Hx Hepatitis C: No Hx MRSA: No - Vaccination History Hx Tetanus, Diphtheria Vaccination: Yes Hx Influenza Vaccination: Yes Hx Pneumococcal Vaccination: Yes - Social History Hx Tobacco Use: Yes Hx Chewing Tobacco Use: No Hx Alcohol Use: No Hx Substance Use: No Hx Substance Use Treatment: No Hx Depression: No Hx Physical Abuse: No Hx Emotional Abuse: No Hx Suspected Abuse: No - Female History Patient : No Physical Exam - Physical Exam General Appearance: Alert, Anxious, No apparent distress Cardiovascular/Respiratory: regular rate, rhythm, normal peripheral pulses, normal breath sounds, no respiratory distress, other - TENDERNESS TO HIS LEFT BACK. Gastrointestinal/Abdominal: normal bowel sounds, non tender, soft, no organomega ly Back Exam: normal inspection, no CVA tenderness Extremity Exam: no evidence of injury, normal range of motion, non-tender Neurologic: no motor/sensory deficits, alert, normal mood/affect Skin Exam: normal color, warm/dry, cyanosis Departure - Departure Clinical Impression: Rib fractures Qualifiers: Encounter type: initial encounter Rib fracture type: multiple ribs Fracture type: closed Laterality: left Qualified Code(s): S22.42XA - Multiple fractures of ribs, left side, initial encounter for closed fracture Time of Disposition: 13:51 Disposition: Discharge to Home or Self Care Condition: Excellent Departure Forms: ED Discharge - Pt. Copy, Patient Portal Self Enrollment Instructions: DI for Chest Pain Referrals: Manoj Dorman MD [Primary Care Provider] - 1-2 Weeks Prescriptions: Tramadol HCl [Ultram] 50 mg PO Q4H PRN #30 tab PRN Reason: Pain Home Medications: Ambulatory Orders Gabapentin 1,200 mg PO TID 10/07/18 Propranolol HCl 60 mg PO BID 10/07/18 Cyclobenzaprine HCl [Flexeril] 10 mg PO TID 05/02/19 Carbidopa-Levodopa [Carbidopa/Levodopa 25-100 mg] 1 tab PO TID 10/01/19 Duloxetine HCl [Cymbalta] 60 mg PO DAILY 10/01/19 Ibuprofen [Ibu] 600 mg PO TID #20 tab 10/01/19 Ondansetron Odt [Zofran ODT] 4 mg PO Q8H PRN #10 tab 10/01/19 Prazosin HCl [Minipress] 2 mg PO DAILY 10/01/19 Risperidone 4 mg PO BID 10/01/19 Tramadol HCl 50 mg PO Q6HR PRN #15 tab 10/01/19 Tramadol HCl [Ultram] 50 mg PO Q4H PRN #30 tab 08/25/20
[2020-08-25] MEDS ORDERED: KETOROLAC TROMETHAMINE INJ 60 MG/2 ML VIAL IM ONE (13:56)
--- NOTE | 2020-08-25 13:57 | RAD ---
EXAM DESCRIPTION: Chest x-ray two views: CLINICAL HISTORY: trauma COMPARISON: None TECHNIQUE: PA and lateral views of the chest were obtained. FINDINGS: 10/26/2018 The heart is normal in size . The hilar and mediastinal structures are within normal limits. The pulmonary vascularity is normal . The lung espino are free of any active pulmonary parenchymal or pleural disease. The bony structures are unremarkable. Deformity of the right sixth and seventh ribs from old healed fractures are noted. IMPRESSION: No active disease. Electronically signed by: Vero Gleason MD 08/25/2020 1:55 PM [facility]
[2020-08-25 14:57] VITALS: BP 143/81; TEMP 97.8; O2SAT 95
== END 2020-08-25 14:51 | disposition home or self-care (01) ==
LOC: ER 12:53
DX: S22.42XA Multiple fractures of ribs, left side, initial encounter for closed fracture (principal); I25.10 Atherosclerotic heart disease of native coronary artery without angina pectoris; K21.9 Gastro-esophageal reflux disease without esophagitis; W01.190A Fall on same level from slipping, tripping and stumbling with subsequent striking against furniture, initial encounter; Y92.9 Unspecified place or not applicable; Z95.5 Presence of coronary angioplasty implant and graft; Z87.891 Personal history of nicotine dependence; Z79.899 Other long term (current) drug therapy
CPT/HCPCS: 71046; J1885

== ENCOUNTER → 2020-09-30 | Outpatient (CLI) | payer MEDICARE, OTHER | LOC: YCFC.O 13:06 | PROVIDERS: ATTEND Family Medicine | DX: R53.83 Other fatigue (principal); Z79.899 Other long term (current) drug therapy ==

== ENCOUNTER → 2020-10-01 | Outpatient (CLI) | payer MEDICARE, OTHER | LOC: YCFC.O 10:14 | PROVIDERS: ATTEND Family Medicine | DX: I10 Essential (primary) hypertension (principal); Z12.5 Encounter for screening for malignant neoplasm of prostate; E78.5 Hyperlipidemia, unspecified; R53.83 Other fatigue | CPT/HCPCS: 36415; 80053; 80061; 84443; 85025; G0103 ==